=== PATIENT | female | born 1980 | race Caucasian/White ===

== ENCOUNTER → 2018-05-02 14:58 | Outpatient (CLI) | payer BC, SELFPAY ==
--- NOTE | 2018-05-02 15:00 | BI_ITS ---
MAMMOGRAPHY - BILATERAL SCREENING REASON FOR EXAM: Female, 38 years old. Routine annual screening examination. PERTINENT HISTORY: Mother with breast cancer. Grandmother with breast cancer. TECHNIQUE: Digital bilateral breast chas (3D mammographic acquisition) in the CC and MLO projections. 2-D mediolateral oblique (MLO) and craniocaudad (CC) views of both breasts were obtained. CAD: Full Field Digital Mammography with Computer Added Detection was performed. COMPARISON: Comparison is made with prior study dated November 14, 2015. FINDINGS: Breast Composition: The breasts are extremely dense, which lowers the sensitivity of mammography. There are no dominant masses or suspicious calcifications. Stable small bilateral axillary lymph nodes. No other significant abnormalities are identified. There has been no significant change since the prior study. BI/SCREENING MAMM (CAD), BILAT IMPRESSION: Stable bilateral screening mammogram. Yearly follow-up mammogram recommended. (A) ASSESSMENT CATEGORY: BIRADS Category 2: Benign. A letter regarding these results will be sent to the patient by the facility within 30 days. Approximately 10% of breast cancers are not detected by mammography. A normal mammogram should not delay biopsy of a clinically suspicious abnormality. [id number] Electronically Signed: Jian Stover MD at 8:07 EDT Tel [phone], Service support ,
== END ==
PROVIDERS: Family Provider Family Medicine; PCP Family Medicine; Referring Provider Obstetrics & Gynecology Gynecology; Visit Provider Obstetrics & Gynecology Gynecology
DX: Z12.31 Encounter for screening mammogram for malignant neoplasm of breast (principal); Z80.3 Family history of malignant neoplasm of breast
CPT/HCPCS: 77063; 77067

== ENCOUNTER → 2018-07-21 16:57 | Outpatient (CLI) | payer BC, SELFPAY ==
[2018-07-21 18:12] LABS: Absolute Lymphocyte Count 2.97 X10^3/ul (0.83-4.51); Basophil# 0.08 X10^3/uL; Eosinophil# 0.16 X10^3/uL; Eosinophils% 2.1 % (0-5); Hematocrit 40.1 % (37-47); Hemoglobin 12.7 g/dl (12.0-15.0); Lymphocyte # 2.97 X10^3/ul (4.0); Lymphocyte % 38.9 % (19-41); Mean Corp Hgb Conc 31.7 g/gl (32-36); Mean Corpuscular Hgb 26.5 pg (27.0-32.0); Mean Corpuscular Volume 83.5 fL (81-99); Mean Platelet Vol. 11.5 fl (6.2-12.0); Monocyte# 0.46 X10^3/uL; Neutrophil # 3.96 X10^3/uL (2.7-7.7); Platelet Count 322 K/mm3 (150-450); RBC Distribution Width CV 15.1 % (11.6-14.6); White Blood Count 7.6 K/mm3 (4.4-11.0)
[2018-07-21 18:23] LABS: POSITIVE COUNT NO; POSITIVE DIFFERENTIAL NO; POSITIVE MORPHOLOGY NO
[2018-07-21 18:24] LABS: Prothrombin Time (Protime)PT. 12.8 SECONDS (11.7-14.9)
[2018-07-21 18:25] LABS: Partial Thromboplast Time 26.5 Seconds (24.1-36.2)
[2018-07-21 18:29] LABS: AST(SGOT) 16 U/L (15-37); Alanine Aminotransfer ALT/SGPT 21 U/L (13-56); Albumin, Serum 4.2 g/dL (3.2-5.0); Alkaline Phosphatase 63 U/L (45-117); Bilirubin, Direct < 0.05 mg/dL (0.00-0.30); Globulin 2.7 g/dL (2.2-4.2); Protein, Total 6.9 g/dL (6.4-8.2)
== END ==
PROVIDERS: Family Provider Family Medicine; PCP Family Medicine; Visit Provider Family Medicine
DX: R23.3 Spontaneous ecchymoses (principal)
CPT/HCPCS: 36415; 80076; 85025; 85610; 85730

== ENCOUNTER → 2019-07-16 10:55 | Outpatient (CLI) | payer BC, SELFPAY ==
[2019-07-16 12:26] LABS: Absolute Lymphocyte Count 1.18 X10^3/uL (0.83-4.51); Absolute Neutrophil Count 4.3 X10^3/uL (2.0-7.7); Basophil# 0.06 X10^3/uL; Eosinophil# 0.13 X10^3/uL; Eosinophils% 2.2 % (0-5); Hematocrit 37.5 % (37-47); Hemoglobin 11.9 g/dL (12.0-15.0); Lymphocyte # 1.18 X10^3/ul (4.0); Lymphocyte % 19.5 % (19-41); Mean Corp Hgb Conc 31.7 g/dL (32-36); Mean Corpuscular Hgb 29.3 pg (27.0-32.0); Mean Corpuscular Volume 92.4 fL (81-99); Mean Platelet Vol. 9.4 fl (6.2-12.0); Monocyte# 0.35 X10^3/uL; Monocyte% 5.8 % (0-10); NRBC Flagged by Analyzer 0 % (0-5); Neutrophil # 4.31 X10^3/uL (2.7-7.7); Neutrophil % 71.3 % (47-70); Platelet Count 285 K/mm3 (150-450); RBC Distribution Width CV 12.3 % (11.6-14.6); RBC Distribution Width SD 41.8 fl (35.1-43.9); Red Blood Count 4.06 M/mm3 (4.2-5.4)
[2019-07-16 13:11] LABS: ALB/GLOB Ratio 1.3 RATIO (0.9-2.4); AST(SGOT) 17 U/L (15-37); Alanine Aminotransfer ALT/SGPT 26 U/L (13-56); Alkaline Phosphatase 70 U/L (45-117); Anion Gap 5 (5-15); BUN 8 mg/dL (7-18); Calcium,Total 8.8 mg/dL (8.5-10.1); Chloride 103 mmol/L (98-107); Creatinine, Serum 0.62 mg/dL (0.55-1.02); EST Glomerular Filtration Rate 115 mL/min (>60); Est Glom Filt Rate - Afr Amer 139 mL/min (>60); Globulin 3.1 g/dL (2.2-4.2); Glucose 102 mg/dL (74-106); Potassium 3.9 mmol/L (3.5-5.1); Protein, Total 7.1 g/dL (6.4-8.2); Sodium Level 138 mmol/L (136-145)
== END ==
PROVIDERS: Family Provider Family Medicine; PCP Family Medicine; Visit Provider Nurse Practitioner Family
DX: R11.2 Nausea with vomiting, unspecified (principal)
CPT/HCPCS: 36415; 80053; 85025

== ENCOUNTER → 2019-07-31 08:13 | Outpatient (CLI) | payer BC, SELFPAY ==
--- NOTE | 2019-07-31 08:15 | BI_ITS ---
MAMMOGRAPHY - BILATERAL SCREENING REASON FOR EXAM: Female, 39 years old. Routine annual screening examination. PERTINENT HISTORY: Mother with breast cancer. Grandmother with breast cancer. Aunt with breast cancer. TECHNIQUE: Digital bilateral breast gely (3D mammographic acquisition) in the CC and MLO projections. 2-D mediolateral oblique (MLO) and craniocaudad (CC) views of both breasts were obtained. CAD: Full Field Digital Mammography with Computer Added Detection was performed. COMPARISON: Comparison is made with prior examination dated May 02, 2018 and November 14, 2015. FINDINGS: Breast Composition: The breasts are extremely dense, which lowers the sensitivity of mammography. There are no dominant masses or suspicious calcifications. No other significant abnormalities are identified. There has been no significant change since the prior study. BI/SCREEN MAMM (CAD) W/GELY BILAT IMPRESSION: Stable bilateral screening mammogram. Yearly follow-up mammogram recommended. (A) ASSESSMENT CATEGORY: BIRADS Category 1: Negative. A letter regarding these results will be sent to the patient by the facility within 30 days. Approximately 10% of breast cancers are not detected by mammography. A normal mammogram should not delay biopsy of a clinically suspicious abnormality. [id number] Electronically Signed: Jian Stover, at 9:18 EST , Service support ,
== END ==
PROVIDERS: Family Provider Family Medicine; PCP Family Medicine; Referring Provider Obstetrics & Gynecology Gynecology; Visit Provider Obstetrics & Gynecology Gynecology
DX: Z12.31 Encounter for screening mammogram for malignant neoplasm of breast (principal); Z80.3 Family history of malignant neoplasm of breast
CPT/HCPCS: 77063; 77067

== ENCOUNTER 2020-05-16 06:32 | Day surgery (SDC) | payer BC, SELFPAY ==
[2020-04-29 13:11] VITALS: BMI 25.8
[2020-05-16] VITALS (7 sets, daily range): BP systolic 103–150; BP diastolic 62–104; PULSE 68–77; RESP 14–16; TEMP 36.2–37.2; O2SAT 4–100; BMI 26.3
--- NOTE | 2020-05-16 06:39 | HP.PCM_ITS ---
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 Is patient in pain?: No Allergies bupropion [From Wellbutrin] Allergy (Mild, Verified 04/29/20 13:13) GI upset sertraline [From Zoloft] Allergy (Mild, Verified 04/29/20 13:13) GI upset Medications baclofen 20 mg tablet 10 mg PO BID PRN tab 04/29/20 [History Confirmed 04/29/20] cetirizine 10 mg tablet 10 mg PO DAILY 04/29/20 [History Confirmed 04/29/20] citalopram 40 mg tablet 40 mg PO DAILY tab 04/29/20 [History Confirmed 04/29/20] fluticasone propionate 50 mcg/actuation nasal spray,suspension 1 spray INTRANASAL DAILY 04/29/20 [History Confirmed 04/29/20] hydrocodone 7.5 mg-acetaminophen 325 mg tablet 1 tab PO BID PRN tab 04/29/20 [History Confirmed 04/29/20] PFSH Medical History Depression (Acute) Anxiety (Acute) Chronic neck pain (Chronic) Allergies (Acute) Family history of breast cancer (Acute) Family history of colon cancer in father (Acute) Surgical History Hx of wisdom tooth extraction (Acute) Family History Mother Breast cancer Father Colon cancer Social History (Updated 04/29/20 @ 13:[address] Octavio Lee MD) Smoking Status: Never smoker second hand exposure: No alcohol intake: current alcohol intake frequency: a few times a week Alcohol type: wine substance use type: does not use caffeine: Yes what type of physical activity do you participate in: walking frequency: 5-6 times per week HPI HPI HPI: SEBASTIAN PIZARRO, is a 40 F who presents to the office today for surgical consultation regarding a colonoscopy. Her father developed colon cancer when he was only 49. She has not had any bright red blood per rectum or melena. No abdominal pain. No unexpected weight loss. No history of DVT. It is of note that February 2020 her developed COVID-19. She and her daughter were tested at the 9. They both tested negative. They both remained asymptomatic throughout. Laboratory going back to July 16, 2019 demonstrated a white count of 6 hemoglobin 9.9 hematocrit 37.5 platelet count 285,000 with a normal differential. Prior to that July 21, 2018 her white count was 7.6 with a hemotwelve 0.7 hematocrit 40.1 platelet count 322,000. 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 Her is an commercial construction estimator. They are not aware of where he may have contracted the Covid 19 but he has recovered and is asymptomatic currently The patient is referred by Dr. Soham Hernandez for a screening colonoscopy and a written copy of my surgical consult and recommendations will be returned to him HPI HPI HPI: SEBASTIAN PIZARRO, is a 40 F who presents to the office today for ROS General General: No weight change, appetite, fatigue, colon cancer, breast cancer or weakness HEENT HEENT: No difficulty swallowing, eye injury, eye surgery, swollen glands or hoarseness Endo Endocrine: No thyroid disease, diabetes mellitus, thyroid cancer, Hair loss, heat intolerance or cold intolerance Skin Skin: No rash or changing moles Musc Musculoskeletal: No back problems, arthritis, rheumatoid arthritis, gout or joint pain Cardio Cardiovascular: No murmur, pacemaker, heart disease, atrial fibrillation, high blood pressure, heart attack, heart stent, palpitations, shortness of breat with exertion or chest pain Psych Psychiatric: Yes depression and anxiety; no hearing voices Resp Respiratory: No shortness of breath, No sleep apnea, No cough, No COPD, No asthma, No emphysema, No wheezing Gastro Gastrointestinal: No abdominal pain, No nausea or vomiting, No diarrhea, No constipation, No blood in stool, No acid reflux, No hemorrhoids, No ulcers, No gallbladder problem, No black,tarry stools Mukesh Hematologic: No blood thinners, No blood disorders, No bleeding, No anemia, No blood clots Neuro Neurologic: No weakness Exam Const General: cooperative, healthy appearing, comfortable, no acute distress Nutritional Appearance: average body habitus Orientation: alert, awake HENAL Head: normal to inspection Eyes General: appearance normal, both eyes and all related structures Resp Effort & Inspection: normal respiratory effort Auscultation: clear to auscultation bilaterally Cardio Rate: regular rate Rhythm: regular rhythm Heart Sounds: no murmurs GI Palpation: soft Auscultation: normal bowel sounds Other: Small umbilical hernia nontender Musc Cervical Spine: normal cervical lordosis Neuro Cognition: normal cognition Extrem General: no calf tenderness Psych Affect: normal affect Assessment & Plan Problems 1. Family history of malignant neoplasm of colon in father Z80.0 2. Umbilical hernia without obstruction and without gangrene K42.9 Plan 40-year-old female with a family history of colon cancer in her father who developed that at age 49. She has not had a previous colonoscopy. Fortunately she is currently asymptomatic. I propose for her a colonoscopy with possible biopsy or polypectomy as indicated. She is aware of the technique, benefit, risk, alternatives. She has had an opportunity to ask and have questions answered. We will schedule procedure at her discretion. I appreciate the opportunity of assisting with her surgical care. Copy: Dr. Soham Lee M.D., F.A.C.S. Coding Level of Care Code 24919 Diagnoses Family history of malignant neoplasm of colon in father Z80.0 Umbilical hernia without obstruction and without gangrene K42.9 I have re-examined the patient. There are no clinical changes since date of exam. Procedure Criteria Procedure Type: Elective COVID Risk Discussion: The surgeon/proceduralist and patient have discussed in detail the risk of exposure to and/or potential harm posed by the COVID-19 virus with having a surgery/procedure at this time versus the risk of delaying the surgery/procedure. It is not possible to know either the risk of delaying the surgery or procedure or chance of getting an infection with perfect accuracy, but a joint decision was made between the patient and the surgeon/proceduralist to proceed at this time with the scheduled surgery/procedure as indicated on the consent form.
[2020-05-16] MEDS: Lactated Ringers 1,000 ML 100 ML IV (07:11)
--- NOTE | 2020-05-16 07:30 | COLBX_PTH ---
PATIENT: SEBASTIAN PIZARRO LOC: EN U#:[id number] AGE/SX: 40/F ROOM: RE05/16/[address]: Dr. Octavio Lee MD : 1980 BED: DIS: 05/16/2020 SPEC #: [id number] RECD: 05/16/20 11:54 STATUS: YOLANDA OVALLE #: [id number] RACHEL: 05/16/20 07:[address]: Octavio Lee DEPT: SURGICAL PATHOLOGY RECD BY: Andie Knox ENTERED: 05/16/20 12:18 SP TYPE: COLON BX OTHR DR: Dr. Soham Hernandez MD Tissues: Ascending colon Procedures: Surgery Specimen Level IV HEADER OPERATION: Colonoscopy (MOD) PRE-OP DIAGNOSIS: Family history malignant neoplasm of colon TISSUE SUBMITTED: Mid ascending polyp biopsy MICROSCOPIC DIAGNOSIS Mid ascending polyp, biopsy: Fragments of colonic mucosa, no pathologic diagnosis. SJ:cyndy 05/19/20 MICROSCOPIC DESCRIPTION Slides are reviewed. GROSS DESCRIPTION Received in fixative is one container labeled with the patient's name and designated mid ascending polyp. The specimen consists of multiple irregular fragments of light fernandes soft tissue that in aggregate measure 1 x 0.3 x 0.1 cm. The specimen is totally submitted in one cassette. / SJ:cyndy 05/16/20 TC:4 CPT: 45293
--- NOTE | 2020-05-16 07:52 | OP.COLON_ITS ---
Patient Name: Tiffany Tran Procedure Date: 05/16/2020 7:10 AM Date of : 1980 Age: 40 Procedure: Colonoscopy Indications: Screening in patient at increased risk: Family history of 1st-degree relative with colorectal cancer before age 60 years Providers: Octavio Lee MD Referring MD: Octavio Lee MD Medicines: Midazolam 4 mg IV, Meperidine 100 mg IV, Diphenhydramine 25 mg IV Patient Profile: Last Colonoscopy: none. The patient's first colonoscopy is today. Complications: No immediate complications. Procedure: Pre-Anesthesia Assessment: - Prior to the procedure, a History and Physical was performed, and patient medications and allergies were reviewed. The patient's tolerance of previous anesthesia was also reviewed. The risks and benefits of the procedure and the sedation options and risks were discussed with the patient. All questions were answered, and informed consent was obtained. Prior Anticoagulants: The patient has taken no previous anticoagulant or antiplatelet agents. ASA Grade Assessment: I - A normal, healthy patient. After reviewing the risks and benefits, the patient was deemed in satisfactory condition to undergo the procedure. After I obtained informed consent, the scope was passed under direct vision. Throughout the procedure, the patient's blood pressure, pulse, and oxygen saturations were monitored continuously. The Colonoscope was introduced through the anus and advanced to the cecum, identified by appendiceal orifice and ileocecal valve. The colonoscopy was somewhat difficult due to a tortuous colon. Successful completion of the procedure was aided by increasing the dose of sedation medication, changing the patient to a supine position and using manual pressure. The patient tolerated the procedure well. The quality of the bowel preparation was good. The ileocecal valve and the appendiceal orifice were photographed. Moderate Sedation: Moderate (conscious) sedation was personally administered by the endoscopist. The following parameters were monitored: oxygen saturation, heart rate, blood pressure, and response to care. Total physician intraservice time was 15 minutes. Scope In: 7:29:45 AM Scope Withdrawal Time 0 hours 7 minutes 14 seconds Scope Out: 7:46:38 AM Total Procedure Duration Time 0 hours 16 minutes 53 seconds Findings: Hemorrhoids were found on perianal exam. A 4 mm polyp was found in the mid ascending colon. The polyp was sessile. The polyp was removed with a cold biopsy forceps. Resection and retrieval were complete. The left colon and right colon were moderately tortuous. The exam was otherwise without abnormality. Impression: - Hemorrhoids found on perianal exam. - One 4 mm polyp in the mid ascending colon, removed with a cold biopsy forceps. Resected and retrieved. - Tortuous colon. - The examination was otherwise normal. Recommendation: - Discharge patient to home. - Resume previous diet. - Continue present medications. - Repeat colonoscopy in 5 years for surveillance. - Telephone my office for pathology results in 1 week. Procedure Code(s): --- Professional --- 75859, Colonoscopy, flexible; with biopsy, single or multiple 92811, 59, Moderate sedation services provided by the same physician or other qualified health hospice care sales consultant performing the diagnostic or therapeutic service that the sedation supports, requiring the presence of an independent trained observer to assist in the monitoring of the patient's level of consciousness and physiological status; initial 15 minutes of intraservice time, patient age 5 years or older Diagnosis Code(s): --- Professional --- Z80.0, Family history of malignant neoplasm of digestive organs K64.9, Unspecified hemorrhoids D12.2, Benign neoplasm of ascending colon Q43.8, Other specified congenital malformations of intestine CPT copyright 2017 [employer]. All rights reserved. The codes documented in this report are preliminary and upon motion graphics designer review may be revised to meet current compliance requirements. Octavio Lee MD 05/16/2020 7:51:46 AM This report has been signed electronically. Number of Addenda: 0 Note Initiated On: 05/16/2020 7:10 AM
--- NOTE | 2020-05-16 07:52 | OP.CCLET_ITS ---
05/16/2020 Soham Hernandez Md Re : Colonoscopy procedure for Tiffany Tran Dear David This procedure was performed on Saturday, May 16, 2020. My impressions and recommendations are as follows: Impressions : - Hemorrhoids found on perianal exam. - One 4 mm polyp in the mid ascending colon, removed with a cold biopsy forceps. Resected and retrieved. - Tortuous colon. - The examination was otherwise normal. Recommendations : - Discharge patient to home. - Resume previous diet. - Continue present medications. - Repeat colonoscopy in 5 years for surveillance. - Telephone my office for pathology results in 1 week. My findings are described in the full procedure note, which is enclosed. If I can be of further assistance, please feel free to contact me at Doctor phone number(s): Work: . Sincerely, Octavio Lee MD 05/16/2020 7:51:46 AM This report has been signed electronically.
== END 2020-05-16 08:35 | disposition home or self-care (01) ==
LOC: EN 06:32 → AC 06:33
PROVIDERS: PCP Family Medicine; Referring Provider Surgery; Visit Provider Surgery
PROC: 0DJD8ZZ Inspection of Lower Intestinal Tract, Via Natural or Artificial Opening Endoscopic (ICD-10-PCS; CPT 45378; principal; 2020-05-16 07:25)
DX: Z12.11 Encounter for screening for malignant neoplasm of colon (principal); Z11.59 Encounter for screening for other viral diseases; D12.2 Benign neoplasm of ascending colon; K42.9 Umbilical hernia without obstruction or gangrene; K64.9 Unspecified hemorrhoids; Q43.8 Other specified congenital malformations of intestine; F32.9 Major depressive disorder, single episode, unspecified; F41.9 Anxiety disorder, unspecified; Z79.899 Other long term (current) drug therapy; Z80.0 Family history of malignant neoplasm of digestive organs
CPT/HCPCS: 45380; 87635; 88305; 99152; 99153; C9803; J7120; U0003

== ENCOUNTER → 2020-12-18 08:10 | Outpatient (CLI) | payer BC, SELFPAY ==
[2020-05-16 06:53] VITALS: BMI 26.3
--- NOTE | 2020-12-18 08:12 | BI_ITS ---
MAMMOGRAPHY - BILATERAL SCREENING REASON FOR EXAM: Female, 40 years old. Routine annual screening examination. PERTINENT HISTORY: Mother with breast cancer. Grandmother with breast cancer. Aunt with breast cancer. TECHNIQUE: Digital bilateral breast gely (3D mammographic acquisition) in the CC and MLO projections. 2-D mediolateral oblique (MLO) and craniocaudad (CC) views of both breasts were obtained. CAD: Full Field Digital Mammography with Computer Added Detection was performed. COMPARISON: Comparison is made with prior examination dated 01/29/2020 and 05/02/2018. FINDINGS: Breast Composition: The breasts are extremely dense, which lowers the sensitivity of mammography. There are no dominant masses or suspicious calcifications. No other significant abnormalities are identified. There has been no significant change since the prior study. BI/SCRN MAMM (CAD)W/GELY BILAT IMPRESSION: Stable bilateral screening mammogram. Yearly follow-up mammogram recommended. (A) ASSESSMENT CATEGORY: BIRADS Category 1: Negative. A letter regarding these results will be sent to the patient by the facility within 30 days. Approximately 10% of breast cancers are not detected by mammography. A normal mammogram should not delay biopsy of a clinically suspicious abnormality. [id number] Electronically Signed: Jian Stover MD at 9:31 EDT , Service support ,
== END ==
PROVIDERS: PCP Family Medicine; Referring Provider Obstetrics & Gynecology Gynecology; Visit Provider Obstetrics & Gynecology Gynecology
DX: Z12.31 Encounter for screening mammogram for malignant neoplasm of breast (principal); Z80.3 Family history of malignant neoplasm of breast
CPT/HCPCS: 77063; 77067

== ENCOUNTER → 2021-01-05 08:12 | Outpatient (CLI) | payer BC, SELFPAY ==
[2020-05-16 06:53] VITALS: BMI 26.3
[2021-01-05 09:50] LABS: Absolute Lymphocyte Count 2.61 X10^3/uL (0.83-4.51); Absolute Neutrophil Count 1.7 X10^3/uL (2.0-7.7); Basophil# 0.09 X10^3/uL; Basophil% 1.8 % (0-1); Eosinophil# 0.33 X10^3/uL; Eosinophils% 6.5 % (0-5); Hemoglobin 12.7 g/dL (12.0-15.0); Lymphocyte # 2.61 X10^3/ul (0.83-4.51); Lymphocyte % 51.2 % (19-41); Mean Corp Hgb Conc 32.6 g/dL (32-36); Mean Corpuscular Hgb 30.4 pg (27.0-32.0); Mean Corpuscular Volume 93.3 fL (81-99); Mean Platelet Vol. 9.4 fl (6.2-12.0); Monocyte# 0.41 X10^3/uL; NRBC Flagged by Analyzer 0 % (0-5); Neutrophil # 1.66 X10^3/uL (2.7-7.7); Neutrophil % 32.5 % (47-70); Platelet Count 242 K/mm3 (150-450); RBC Distribution Width CV 12.4 % (11.6-14.6); RBC Distribution Width SD 42.9 fl (35.1-43.9); Red Blood Count 4.18 M/mm3 (4.2-5.4); White Blood Count 5.1 K/mm3 (4.4-11.0)
[2021-01-05 10:32] LABS: ALB/GLOB Ratio 1.3 RATIO (0.9-2.4); AST(SGOT) 15 U/L (15-37); Alanine Aminotransfer ALT/SGPT 21 U/L (13-56); Albumin, Serum 3.9 g/dL (3.2-5.0); Alkaline Phosphatase 62 U/L (45-117); Anion Gap 7 (5-15); BUN 12 mg/dL (7-18); BUN/Creat Ratio 17.6 RATIO (10-20); Calcium,Total 8.4 mg/dL (8.5-10.1); Chloride 104 mmol/L (98-107); Cholesterol 245 mg/dL (200); Creatinine, Serum 0.68 mg/dL (0.55-1.02); EST Glomerular Filtration Rate 101 mL/min (>60); Est Glom Filt Rate - Afr Amer 123 mL/min (>60); Glucose 85 mg/dL (74-106); High Density Lipoprotein 89 mg/dL; Potassium 3.9 mmol/L (3.5-5.1); Protein, Total 6.9 g/dL (6.4-8.2); Sodium Level 141 mmol/L (136-145); Triglycerides 80 mg/dL; Very Low Density Lipoprotein 16 mg/dL (5-40)
== END ==
PROVIDERS: PCP Family Medicine; Visit Provider Family Medicine
DX: D64.9 Anemia, unspecified (principal); Z13.1 Encounter for screening for diabetes mellitus; Z13.220 Encounter for screening for lipoid disorders
CPT/HCPCS: 36415; 80053; 80061; 85025

== ENCOUNTER → 2022-02-12 | Outpatient (CLI) | payer BC, SELFPAY ==
--- NOTE | 2022-02-12 13:59 | BI_ITS ---
MAMMOGRAPHY - BILATERAL SCREENING REASON FOR EXAM: Female, 41 years old. Routine annual screening examination. PERTINENT HISTORY: Mother with breast cancer. Grandmother with breast cancer. Aunt with breast cancer. TECHNIQUE: Digital bilateral breast gely (3D mammographic acquisition) in the CC and MLO projections. 2-D mediolateral oblique (MLO) and craniocaudad (CC) views of both breasts were obtained. CAD: Full Field Digital Mammography with Computer Added Detection was performed. COMPARISON: Comparison is made with prior study dated 12/18/2020 and 12/30/2019. FINDINGS: Breast Composition: The breasts are extremely dense, which lowers the sensitivity of mammography. There are no dominant masses or suspicious calcifications. Stable small benign appearing bilateral axillary lymph nodes. No other significant abnormalities are identified. There has been no significant change since the prior study. BI/SCRN MAMM (CAD)W/GELY BILAT IMPRESSION: Stable bilateral screening mammogram. Yearly follow-up mammogram recommended. (A) ASSESSMENT CATEGORY: BIRADS Category 2: Benign. A letter regarding these results will be sent to the patient by the facility within 30 days. Approximately 10% of breast cancers are not detected by mammography. A normal mammogram should not delay biopsy of a clinically suspicious abnormality. [id number] Electronically Signed: Jian Stover MD at 10:23 EDT ,
== END | disposition home or self-care (01) ==
LOC: OPBI 13:58
PROVIDERS: PCP Registered Nurse; Visit Provider Obstetrics & Gynecology Gynecology
DX: Z12.31 Encounter for screening mammogram for malignant neoplasm of breast (principal); Z80.3 Family history of malignant neoplasm of breast
CPT/HCPCS: 77063; 77067

== ENCOUNTER → 2023-03-07 | Outpatient (CLI) | payer BC, SELFPAY ==
--- NOTE | 2023-03-07 07:34 | BI_ITS ---
MAMMOGRAPHY - BILATERAL SCREENING REASON FOR EXAM: Female, 43 years old. Routine annual screening examination. PERTINENT HISTORY: Mother with breast cancer. Grandmother with breast cancer. Aunt with breast cancer. TECHNIQUE: Digital bilateral breast gely (3D mammographic acquisition) in the CC and MLO projections. 2-D mediolateral oblique (MLO) and craniocaudad (CC) views of both breasts were obtained. CAD: Full Field Digital Mammography with Computer Added Detection was performed. COMPARISON: Comparison is made with prior study dated February 12, 2022 and December 18, 2020. FINDINGS: Breast Composition: The breasts are extremely dense, which lowers the sensitivity of mammography. There are no dominant masses or suspicious calcifications. Stable small benign-appearing bilateral axillary nodes. No other significant abnormalities are identified. There has been no significant change since the prior study. BI/SCRN MAMM (CAD)W/GELY BILAT IMPRESSION: Stable bilateral screening mammogram. Yearly follow-up mammogram recommended. (A) ASSESSMENT CATEGORY: BIRADS Category 2: Benign. A letter regarding these results will be sent to the patient by the facility within 30 days. Approximately 10% of breast cancers are not detected by mammography. A normal mammogram should not delay biopsy of a clinically suspicious abnormality. [id number] Electronically Signed: Jian Stover MD at 12:39 EDT ,
== END | disposition home or self-care (01) ==
LOC: OPBI 07:32
PROVIDERS: PCP Registered Nurse; Referring Provider Obstetrics & Gynecology Gynecology; Visit Provider Obstetrics & Gynecology Gynecology
DX: Z12.31 Encounter for screening mammogram for malignant neoplasm of breast (principal); Z80.3 Family history of malignant neoplasm of breast
CPT/HCPCS: 77063; 77067

== ENCOUNTER → 2023-05-30 | Outpatient (CLI) | payer BC, SELFPAY ==
[2023-05-30 08:27] LABS: Hematocrit 40.2 % (37-47); Mean Corp Hgb Conc 32.3 g/dL (32-36); Mean Corpuscular Hgb 30.7 pg (27.0-32.0); Mean Platelet Vol. 8.7 fl (6.2-12.0); Platelet Count 235 K/mm3 (150-450); RBC Distribution Width CV 11.9 % (11.6-14.6); RBC Distribution Width SD 41.2 fl (35.1-43.9); Red Blood Count 4.23 M/mm3 (4.2-5.4); White Blood Count 5.2 K/mm3 (4.4-11.0)
[2023-05-30 09:00] LABS: ALB/GLOB Ratio 1.3 RATIO (0.9-2.4); AST(SGOT) 18 U/L (15-37); Alanine Aminotransfer ALT/SGPT 18 U/L (13-56); Albumin, Serum 4.1 g/dL (3.2-5.0); Alkaline Phosphatase 59 U/L (45-117); Anion Gap 6 (5-15); BUN 8 mg/dL (7-18); BUN/Creat Ratio 10.5 RATIO (10-20); Calcium,Total 8.6 mg/dL (8.5-10.1); Chloride 103 mmol/L (98-107); Cholesterol 216 mg/dL (200); Creatinine, Serum 0.76 mg/dL (0.55-1.02); EST Glomerular Filtration Rate 88 mL/min (>60); Est Glom Filt Rate - Afr Amer 107 mL/min (>60); Globulin 3.1 g/dL (2.2-4.2); Glucose 102 mg/dL (74-106); High Density Lipoprotein 87 mg/dL; Potassium 4.2 mmol/L (3.5-5.1); Protein, Total 7.2 g/dL (6.4-8.2); Sodium Level 138 mmol/L (136-145); Triglycerides 92 mg/dL; Very Low Density Lipoprotein 18 mg/dL (5-40)
== END | disposition home or self-care (01) ==
LOC: LAB 08:11
PROVIDERS: PCP Registered Nurse; Referring Provider Registered Nurse; Visit Provider Registered Nurse
DX: Z00.00 Encounter for general adult medical examination without abnormal findings (principal)
CPT/HCPCS: 36415; 80053; 80061; 85027

== ENCOUNTER → 2023-08-30 | Outpatient (CLI) | payer BC, SELFPAY ==
--- OUTSIDE RECORDS SUMMARY | 2023-08-30 07:41 | XMS RPT_ITS | CCD ---
Author Name Unknown Address [address] [place] [address] Organization [facility] Care Team Providers Care Waste Elimination Name Role Phone LEILA PALACIOS DO Primary Care Physician GOLDY MARTINEZ Primary Care Physi [place] LEILA PALACIOS DO Primary Care Unavailable GOLDY MARTINEZ Attending Un available YANIQUE HERNÁNDEZ MD Attending Unavailable PENELOPE ALVARADO, GOLDY Wilkes Primary Care Un available PENELOPE ALVARADO, GOLDY Wilkes Primary Care Un available YANIQUE HERNÁNDEZ MD Attending Unavailable PENELOPE ALVARADO, GOLDY Wilkes Primary Care Un available YANIQUE HERNÁNDEZ MD Attending Unavailable SUZANNE WILSON, LEILA Primary Care Unavailable PENELOPE ALVARADO, GOLDY Wilkes Attending Un available Medications Current Medications Medication Drug Class(es) Dates Sig (Normalized) Sig (Original) acetaminophen 325 mg / HYDROcodone bitartrate 7.5 mg oral tablet (1 source) Opioid Agonist Start: 11-26-2020 take 1 tablet by mouth twice daily acetaminophen-hydr ocodone 325 mg-7.5 mg oral tablet take 1 tablet by mouth twice a day if needed for 30 DAYS Start Date: 11/26/20 Status: Ordered Ascorbic Acid (2 sources) Vitamin C Start: 06-14-2022 Vitamin C qDay, 0 Refill(s) Start Date: 06/14/22 Status: Ordered citalopram 40 mg oral tablet (4 sources) Serotonin Reuptake Inhibitor Start: 11-26-2020 take 1 tablet by mouth once daily citalopram 40 mg oral tablet TAKE 1 TABLET BY MOUTH ONCE DAILY Start Date: 11/26/20 Status: Ordered Defense Plus supplement (2 sources) Start: 06-14-2022 Defense Plus supplement Defense Plus supplement, 0 Refill(s), 73.8 Start Date: 06/14/22 Status: Ordered Fish Oils (2 sources) Start: 06-14-2022 take 1 dose by mouth once daily Bland-3 Fish Oil Dose : 1,000 mg =, Oral, qDay, 0 Refill(s) Start Date: 06/14/22 Status: Ordered levocetirizine dihydrochloride 5 mg oral tablet (4 sources) Histamine-1 Receptor Antagonist Start: 01-07-2021 Xyzal 5 mg oral tablet Dose : 5 mg = 1 tab(s), Oral, qPM, 0 Refill(s) Start Date: 01/07/21 Status: Ordered Multivitamin preparation (4 sources) Start: 11-26-2020 take 1 tablet by mouth once daily Multivitamin Dose = 1 tab(s), Oral, Daily, 0 Refill(s) Start Date: 11/26/20 Status: Ordered Probiotic (4 sources) Start: 11-26-2020 Probiotic 0 Refill(s) Start Date: 11/26/20 Status: Ordered Problems Active Problems Problem Classification Problem Date Documented Date Episodic/Chronic Essential hypertension (4 sources) Hypertensive disorder 11-26-2020 Chronic Other female genital disorders (4 sources) Cervical intraepithelial neoplasia grade 1 05-27-2021 Episodic Other female genital disorders (2 sources) Mild cervical dysplasia; Translations: [Mild cervical dysplasia] Onset: 01-25-2023 Episodic Other upper respiratory disease (2 sources) Seasonal allergy 05-14-2022 Chronic Residual codes; unclassified (4 sources) Family history of breast cancer 11-26-2020 Episodic Spondylosis; intervertebral disc disorders; other back problems (3 sources) Torticollis 02-15-2022 Episodic Past or Other Problems Problem Classification Problem Date Documented Da te Episodic/Chronic Abdominal pain (2 sources) Pelvic and perineal pain; Translations: [Pelvic and perineal pain] Onset: 06-14-2022 Episodic Mycoses (2 sources) Candidiasis of vulva and vagina; Translations: [Candidiasis of vulva and vagina] Onset: 06-14-2022 Episodic Results Test Name Value Interpretation Reference Range Facil ity Encounters Encounter Date Encounter Type Care Provider Facility Start: 01-25-2023 End: 01-30-2023 ambulatory YANIQUE HERNÁNDEZ MD Facility:B Start: 01-25-2023 End: 01-30-2023 Encounter for gynecological examination (general) (routine) without abnormal findings YANIQUE HERNÁNDEZ MD Facility:B Start: 06-14-2022 End: 06-19-2022 ambulatory GOLDY NEGRETE APRN-BACK CLOSER Facility:B Start: 06-14-2022 End: 06-18-2022 Outreach Lab YANIQUE HERNÁNDEZ MD [facility] Start: 06-14-2022 End: 06-19-2022 ambulatory GOLDY NEGRETE APRN-BACK CLOSER Facility:B Start: 06-14-2022 End: 06-18-2022 Outreach Lab YANIQUE HERNÁNDEZ MD [facility] Start: 04-13-2022 End: 04-14-2022 ambulatory LEILA PALACIOS DO Facility:B Start: 04-13-2022 End: 04-13-2022 Patient encounter procedure GOLDY NEGRETE ALIGNING INSPECTOR-BACK CLOSER [facility] Start: 12-09-2021 End: 12-13-2021 Outreach Lab YANIQUE HERNÁNDEZ MD [facility] Procedures Date Procedure Procedure Detail Performing Clinician Structure of wisdom tooth (body structure) YANIQUE HERNÁNDEZ MD Immunizations Immunization Date Immunization Notes Care Provider Fa cility 05-14-2022 influenza, injectabl e, quadrivalent, contains preservative; Translations: [Fluarix PF Quadrivalent ] YANIQUE HERNÁNDEZ MD [facility] Payers Date Payer Category Payer Unknown [id number] 2022 Unknown [id number] 1980 Unknown [id number] 2.16.8 [id number] 1980 Unknown [id number] 2.16.8 [id number] 1980 Unknown [id number] 2.16.8 [id number] 1980 Unknown [id number] 2.16.8 [id number] 1980 Unknown [id number] 2.16.8 [id number] Social History Date Type Detail Facility Start: 11-25-2020 Tobacco smoking status Never s moked tobacco (finding) [facility] Sex Assigned At Female [facility] Clinical Notes 06-16-2022 to 06-17-2022 LaboratoryRadiologyRadiologyLaboratoryRadiology Note Date & Type Note Facility 06-17-2022 Note Pathology report verified by [facility] Screened by: KWAME MAHARAJ Electronically signed by IVONNE SANDS Sign-Out Date: 06/18/2022 10:51 Performing Lab: [address] Pathology Dept [facility] 06-17-2022 Note Pathology report verified by [facility] Screened by: KWAME MAHARAJ Electronically signed by IVONNE SANDS Sign-Out Date: 06/18/2022 10:51 Performing Lab: [address] Pathology Dept [facility] 06-17-2022 Note Pathology report verified by [facility] Screened by: [place] DW Electronically signed by IVONNE SANDS Sign-Out Date: 06/18/2022 10:51 Performing Lab: [facility], [address] [place] [address] Pathology Dept [facility] 06-17-2022 Note Pathology report verified by [facility] Screened by: KWAME MAHARAJ Electronically signed by IVONNE SANDS Sign-Out Date: 06/18/2022 10:51 Performing Lab: [facility], [address] [place] [address] Pathology Dept [facility] 06-17-2022 Note Pathology report verified by [facility] Screened by: KWAME MAHARAJ Electronically signed by IVONNE SANDS Sign-Out Date: 06/18/2022 10:51 Performing Lab: [facility], [address] [place] [address] [place] Pathology Dept [facility] 06-17-2022 Note Pathology report verified by [facility] Screened by: KWAME MAHARAJ Electronically signed by IVONNE ASNDS Sign-Out Date: 06/18/2022 10:51 Performing Lab: [facility], [address] [place] [address] Pathology Dept [facility] 06-17-2022 Note Pathology report verified by [facility] Screened by: KWAME MAHARAJ Electronically signed by IVONNE SANDS Sign-Out Date: 06/18/2022 10:51 Performing Lab: [facility], [address] [place] [address] [place] Pathology Dept [facility] 06-16-2022 Note . MICRO - Microbiology PROCEDURE: Urine Culture [*1] SOURCE: Urine, Clean Catch BODY SITE: COLLECTED DATE/TIME: 06/14/2022 10:32 EST RECEIVED DATE/TIME: 06/14/2022 15:19 EST START DATE/TIME: 06/14/2022 15:19 EST FREE TEXT SOURCE: FINAL REPORTS Final Report [] Verified Date/Time/Personnel: 06/16/2022 08:38 EST No growth at 48 hours. PRELIMINARY REPORTS Preliminary Report [] Verified Date/Time/Personnel: 06/15/2022 09:16 EST No growth to date Performing Locations *1: This test was performed at: [facility], [address] [place] [address], [facility] , [facility] ([place]) Evaluation + Plan note Future Appointments Appointment Date:06/14/2022 08:30:00 AM Scheduled Provider:YANIQUE HERNÁNDEZ MD Location:[facility] Appointment Type: OV Diagnostic Tests PendingHPV Screen, DNA Probe 12/09/21 Future Scheduled TestsPathology Tissue Request 01/07/21Pathology Tissue Request 01/07/21MA Mammo Screening Bilateral w/ Kyle 12/17/20MA Mammo Screening Bilateral w/ Kyle 12/09/21 [facility] Evaluation + Plan note Future Appointments Appointment Date:05/14/2022 12:30:00 PM Scheduled Provider:GOLDY NEGRETE Location:[facility] Appointment Type:PC OV Appointment Date:06/14/2022 08:30:00 AM Scheduled Provider:YANIQUE HERNÁNDEZ MD Location: [facility] Appointment Type: OV Future Scheduled TestsMA Mammo Screening Bilateral w/ Kyle 12/09/21 [facility] Evaluation + Plan note Future Appointments Appointment Date:08/09/2022 01:00:00 PM Scheduled Provider:GOLDY NEGRETE Location:[facility] Appointment Type:PC OV Future Scheduled TestsPathology Circuit Court Clerk Request 06/14/22MA Mammo Screening Bilateral w/ Kyle 12/09/21 [facility] Hospital course Narrative No data available for this section [facility] Hospital Discharge instructions No data available for this section [facility] Progress note No data available for this section [facility] Summary Purpose Family History No Family History Records FoundNo Family History Records FoundNo Family History Records Found Advance Directives No Advanced Directives Records FoundNo Advanced Directives Records FoundNo Advanced Directives Records Found Additional Source Comments INFORMATION SOURCE (unrecogn ized section and content) DATE CREATED AUTHOR AUTHOR'S ORGANIZ ATION 12/12/2020 [facility] ([place]) DATE CREATED AUTHOR AUTHOR'S ORGANIZ ATION 02/04/2023 [facility] [place]) Care Team (unrecognized sect ion and content) Personnel Name: LEILA PALACIOS DO Address: [address] [place] [phone]- [place] Care Team (unrecognized sect ion and content) Care Team Personnel Name: LEILA PALACIOS DO Member Role: Primary Care Physician Address: Address: [address] [place] [phone]- Care Team Related Persons Name: LLOYD PIZARRO Name: ALIS PIZARRO Address: Home [address] [place] [phone] Address: Temporary [address] [place] [id number] Care Team Personnel Name: GOLDY NEGRETE Position: P4 Advanced Practice Nurse Member Role: Primary Care Physician Address: [facility] [place], [place] [address] Care Team Related Persons Name: LLOYD PIZARRO Name: ALIS PIZARRO Address: Home [address] [place] [phone] Address: Temporary [address] [place] [phone] Care Team Personnel Name: GOLDY NEGRETE APRN-BACK CLOSER Position: P4 Advanced Practice Nurse Member Role: Primary Care Physician Address: Address: [address] [place] [address] [place] [address]- Care Team Related Persons Name: JUAREZ LLOYD Name: ALIS PIZARRO Address: Home [address] [place] [phone] Address: Temporary [address] [place] [phone] FOR RECORDS PERTAINING TO PATIENTS WHO ARE OR HAVE BEEN ENROLLED IN A CHEMICAL DEPENDENCY/SUBSTANCEABUSE PROGRAM, SOME INFORMATION MAY BE OMITTED. This clinical summary was aggregated from multiple sources. Caution should be exercised in using it in the provision of clinical care. This summary normalizes information from multiple sources, and as a consequence, information in this document may materially change the coding, format and clinical context of patient data. In addition, data may be omitted in some cases. CLINICAL DECISIONS SHOULD BE BASED ON THE PRIMARY CLINICAL RECORDS. [facility] [employer] provides no warranty or guarantee of the accuracy or completeness of information in this document.
[2023-08-30 09:23] LABS: Follicle Stimulating Hormone 5.8 mIU/mL; T4 Free Direct 0.88 ng/dL (0.76-1.46); Thyroid Stim Hormone (TSH) 1.21 uIU/mL (0.358-3.74)
[2023-09-02 03:07] LABS: Anti-Mullerian Hormone,Serum 0.261 ng/mL (.)
== END | disposition home or self-care (01) ==
PROVIDERS: PCP Registered Nurse; Referring Provider Registered Nurse; Visit Provider Registered Nurse
DX: R53.83 Other fatigue (principal); N95.1 Menopausal and female climacteric states
CPT/HCPCS: 36415; 83001; 83002; 83516; 84439; 84443

== ENCOUNTER → 2024-03-08 | Outpatient (CLI) | payer BC, SELFPAY ==
--- NOTE | 2024-03-08 12:15 | BI_ITS ---
MAMMOGRAPHY - BILATERAL SCREENING REASON FOR EXAM: Female, 44 years old. Routine annual screening examination. PERTINENT HISTORY: Mother with breast cancer. Grandmother with breast cancer. Aunt with breast cancer. TECHNIQUE: Digital bilateral breast gely (3D mammographic acquisition) in the CC and MLO projections. 2-D mediolateral oblique (MLO) and craniocaudad (CC) views of both breasts were obtained. CAD: Full Field Digital Mammography with Computer Added Detection was performed. COMPARISON: Comparison is made with prior study March 07, 2023 and February 12, 2022. FINDINGS: Breast Composition: The breasts are extremely dense, which lowers the sensitivity of mammography. There are no dominant masses or suspicious calcifications. Stable small benign-appearing bilateral axillary lymph nodes. No other significant abnormalities are identified. There has been no significant change since the prior study. BI/SCRN MAMM (CAD)W/GELY BILAT IMPRESSION: Stable bilateral screening mammogram. Yearly follow-up mammogram recommended. (A) ASSESSMENT CATEGORY: BIRADS Category 2: Benign. A letter regarding these results will be sent to the patient by the facility within 30 days. Approximately 10% of breast cancers are not detected by mammography. A normal mammogram should not delay biopsy of a clinically suspicious abnormality. [id number] Electronically Signed: Jian Stover MD at 13:40 EDT ,
--- NOTE | 2024-03-08 12:34 | VDLE_ITS ---
Reason For Study: LLE Pain RIGHT LEFT FV is compressible, spontaneous, phasic, CFV is compressible, spontaneous, phasic, competent and demonstrates normal competent, and demonstrates normal augmentation. augmentation. Procedure FV is compressible, spontaneous, phasic, This is a venous duplex using B-mode, color competent and demonstrates normal flow and spectral Doppler. augmentation. Exam performed in department. POP V is compressible, spontaneous, phasic, The exam was diagnostic. competent and demonstrates normal augmentation. T/P Trunk is compressible. PTV is compressible. LT PerV is compressible. SFJ is INCOMPETENT and measures 0.50 cm. GSV Prox - Mid Thigh unable to visualize / HX Ablation. GSV at knee measures 0.65 x 0.75 cm. GSV below knee is INCOMPETENT for greater than 0.5 seconds. ASV mid calf is INCOMPETENT for greater than 0.5 seconds and measures 0.39 x 0.44 cm. ASV distal thigh is INCOMPETENT for greater than 0.5 seconds and measures 0.26 x 0.30 cm. ASV Dist thigh noted at posterior area. SSV proximal calf is competent and measures 0.22 x 0.27 cm. VL/Venous Duplex US, Unilateral Interpretation Summary Deep veins of the left lower extremity are patent and compressible segmentally. There is no evidence of left lower extremity deep vein thrombosis. The left great saphenous vein jada ears patent and compressible segmentally. Positive for reflux in the left saphenofemoral junction, great saphenous vein b elow the knee, accessory saphenous veins in thigh and calf. Ordering Physician: Juliann Sabillon Referring Physician: Vandana Valerio Performed By: Prabhu Doan RVT
== END | disposition home or self-care (01) ==
PROVIDERS: PCP Registered Nurse; Referring Provider Physician Assistant; Visit Provider Physician Assistant
DX: Z12.31 Encounter for screening mammogram for malignant neoplasm of breast (principal); N87.0 Mild cervical dysplasia; Z80.3 Family history of malignant neoplasm of breast; I83.892 Varicose veins of left lower extremity with other complications; M79.605 Pain in left leg
CPT/HCPCS: 77063; 77067; 93971

== ENCOUNTER → 2024-07-02 | Outpatient (CLI) | payer BC, SELFPAY ==
--- NOTE | 2024-07-02 08:48 | US_ITS ---
HISTORY: epigastric abdominal pain, nausea. TECHNIQUE: Hernandez scale and color doppler imaging was performed of the right upper quadrant. 103 images. COMPARISON: None. FINDINGS: LIVER: 15.7 cm in length. Homogeneous echotexture with a 9 mm cyst in the left lobe. No intrahepatic ductal dilatation. MAIN PORTAL VEIN: Patent with flow in the appropriate direction. COMMON BILE DUCT: 5 mm in diameter. GALLBLADDER: No gallstones. 1 mm wall thickness. No pericholecystic fluid. Sonographic Salazar sign negative. PANCREAS: Visualized proximal portion unremarkable. RIGHT KIDNEY: 11.7 cm in length with a cortical thickness of 1.4 cm. No hydronephrosis or gross renal mass demonstrated. US/Abdomen Limited IMPRESSION: No sonographic evidence of cholelithiasis. Electronically Signed: Romelia Bailey MD at 16:00 EST ,
== END | disposition home or self-care (01) ==
LOC: US 08:47
PROVIDERS: PCP Registered Nurse; Referring Provider Nurse Practitioner Acute Care; Visit Provider Nurse Practitioner Acute Care
DX: R10.13 Epigastric pain (principal); R11.0 Nausea
CPT/HCPCS: 76705

== ENCOUNTER 2024-07-03 09:58 | Day surgery (SDC) | payer BC, SELFPAY ==
--- NOTE | 2024-06-27 11:18 | PAT.ANE_ITS ---
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 When Was Last Pacemaker Check QUESTION #4 FULL TEXT: You/Your Family Experience fever (hyperthermia) with Anesthesia Last Oral Intake Last Oral intake: Last Oral Intake NPO since Meds taken in AM with sips of water? Meds patient instructed to take am of surgery PONV PONV - lead laying and gluing machine operator: PONV - lead laying and gluing machine operator Female Yes 06/26/24 15:08 HX of Motion Sickness No 06/26/24 15:08 HX of N/V After Surgery No 06/26/24 15:08 Non-Smoker Yes 06/26/24 15:08 Duration of Surgery greater Yes 06/26/24 15:08 than 60 minutes Number of Risk Factors 3 06/26/24 15:08 PONV Score Moderate Risk 06/26/24 15:08 Height & Weight Height & Weight: Anesthesia: Height & Weight Height 5 ft 8 in 06/26/24 09:13 Respiratory Assessment Respiratory Assessment - lead laying and gluing machine operator: Respiratory Tract Infection Hx - lead laying and gluing machine operator Hx Respiratory Tract Infection No 06/26/24 15:08 STOP Sleep Apnea STOP Sleep Apnea - lead laying and gluing machine operator: STOP Sleep Apnea - lead laying and gluing machine operator Hx Hypertension No 06/26/24 15:08 Hx Sleep Apnea No 06/26/24 15:08 CPAP BIPAP Do you snore loudly (louder No 06/26/24 15:08 than talking or can be heard Do you often feel tired/ No 06/26/24 15:08 fatigued/ sleepy during daytime? Has anyone observed you stop No 06/26/24 15:08 breathing during sleep? STOP Results Negative 06/26/24 15:08 QUESTION #5 FULL TEXT : Do you snore loudly (louder than talking or can be heard through closed doors)? Tobacco Use History Tobacco Use History - lead laying and gluing machine operator: Tobacco Use History - lead laying and gluing machine operator Tobacco Use Smoking Status Never smoker 06/26/24 15:08 Hx Tobacco Use No 06/26/24 15:08 Years Smoking Packs Smoked per Day Smoking Cessation Date was within the last 15 years Hx Smoking Cessation Date Hx Smoking Cessation Counseling Hematologic Medial History Hematologic Hx - lead laying and gluing machine operator: Hematologic Medical Hx - rn documentation Hx of Blood Transfusion No 06/26/24 15:08 Hx of Transfusion in last 3 No 06/26/24 15:08 Months Date of Last Transfusion (if within last 3 months) Ever experience any problems No 06/26/24 15:08 with transfusion(s)? Specify any problems Hx of Preganancy in last 3 No 06/26/24 15:08 Months Nurse Filling Out Transfusion DSCHRIBER 06/26/24 15:08 & Questions: Date: 06/26/24 06/26/24 15:08 Time: 15:09 06/26/24 15:08 Patient unable to answer at this time (ie. confused, unrespo /Reproduction History /Reproductive History - lead laying and gluing machine operator: /Reproductive Hx- lead laying and gluing machine operator Hx Now No 06/26/24 15:08 Gestational Age (in weeks): EDC: Hx Hx Para Hx Section SAB No 06/26/24 15:08 [facility] Medical History (Updated 06/26/24 @ 15:14 by Vera Potts) Alcohol use Easy bruising Migraine headache Gastritis Non-smoker History of echocardiogram Heart murmur Depression Anxiety Family history of breast cancer Family history of colon cancer in father Home Medications ?Medication ?Instructions ?Recorded ?Last Taken ?Type hydrocodone 7.5 mg-acetaminophen 1 tab PO BID PRN pain 04/29/20 Unknown History 325 mg tablet citalopram 40 mg tablet 40 mg PO DAILY 06/26/24 Unknown History fluticasone propionate 50 1 spray intranasal DAILY PRN nasal 06/26/24 Unknown History mcg/actuation nasal congestion spray,suspension lactobacillus combo no.11 15 1 cap PO QDAY 06/26/24 Unknown History billion cell sprinkle capsule (Probiotic) multivitamin 1 tab PO QDAY 06/26/24 Unknown History pantoprazole 40 mg tablet,delayed 40 mg PO DAILY 06/26/24 Unknown History release Allergy/AdvReac Type Severity Reaction Status Date / Time bupropion (From Wellbutrin) Allergy Mild GI upset Verified 06/26/24 15:06 sertraline (From Zoloft) Allergy Mild GI upset Verified 06/26/24 15:06 Family History Mother Breast cancer Father Colon cancer Surgical History (Updated 06/26/24 @ 15:14 by Vera Potts) Hx of vein stripping Hx of wisdom tooth extraction Social History Smoking Status: Never smoker second hand exposure: No alcohol intake: current alcohol intake frequency: a few times a week Alcohol type: wine substance use type: does not use caffeine: Yes what type of physical activity do you participate in: walking frequency: 5-6 times per week Audit: Pertinent Findings Pertinent Findings Echo (EF%) pertinent findings: 04/13/2022 EF 60 to 65% right atrial pressure 3 Recommendation Anesthesia Recommendation Anesthesia recommendation: OPTIMIZED for anesthesia
[2024-07-03] VITALS (7 sets, daily range): BP systolic 104–129; BP diastolic 74–96; PULSE 60–71; RESP 16–18; TEMP 36.2–36.3; O2SAT 97–100; BMI 25.9
[2024-07-03 10:34] LABS: Hematocrit 38.9 % (37-47); Hemoglobin 12.9 g/dL (12.0-15.0); Internal QC Validated? YES +Cl - CLEAR BKGD; Mean Corp Hgb Conc 33.2 g/dL (32-36); Mean Corpuscular Hgb 30.5 pg (27.0-32.0); Mean Platelet Vol. 8.9 fl (6.2-12.0); Platelet Count 235 K/mm3 (150-450); Pregnancy, Urine Negative Negative; RBC Distribution Width CV 12.1 % (11.6-14.6); RBC Distribution Width SD 40.3 fl (35.1-43.9); Red Blood Count 4.23 M/mm3 (4.2-5.4)
--- NOTE | 2024-07-03 10:44 | PCM.PRE.AN2 ---
ASA Classification* ASA Classification ASA Classification: 2 Assessment & Plan Anesthesia* Anesthesia Assessment Anesthesia Assessment: Discussed sedation and/or anesthesia options, risks, benefits, and alternatives with patient/parents/legal guardian/POA. Questions invited. The patient/parents/legal guardian/POA seems to understand and agrees to proceed with anesthesia plan. Reviewed the physical assessment, medical history, allergy history and patient home medications list prior to surgery/procedure/anesthetic and documented any changes. Performed airway and anesthesia risk assessments. Anesthesia Type Anesthesia Type: MAC History Source History Obtained from:: Patient and Chart Anesthesia Focused Assessment* Temperature: 97.2 F Pulse Rate: 69 Blood Pressure: 116/74 Respiratory Rate: 18 Pulse Ox: 100 Oxygen Delivery Method: Room Air Airway Assessment Mouth opens: >3 cm Mallampati Score: II Teeth Condition: Intact Neck Range of motion (ROM): Full ROM Focused Labs Anesthesia Preop lab: CBC WBC 5.0 K/mm3 (4.4-11.0) 07/03/24 10:26 RBC 4.23 M/mm3 (4.2-5.4) 07/03/24 10:26 Hgb 12.9 g/dL (12.0-15.0) 07/03/24 10:26 Hct 38.9 % (37-47) 07/03/24 10:26 Plt Count 235 K/mm3 (150-450) 07/03/24 10:26 CHEMISTRY Potassium 3.9 mmol/L (3.5-5.1) 07/03/24 10:26 Sodium 138 mmol/L (136-145) 07/03/24 10:26 BUN 11 mg/dL (7-18) 07/03/24 10:26 Creatinine 0.67 mg/dL (0.55-1.02) 07/03/24 10:26 Glucose 100 mg/dL (74-106) 07/03/24 10:26 TSH 1.21 uIU/mL (0.358-3.74) 08/30/23 08:07 COAG PT 12.8 SECONDS (11.7-14.9) 07/21/18 16:59 Urine Test Negative Negative 07/03/24 10:26 Pre-Assessment Diagnosis/Proposed Procedure Planned Operative Procedure(s): LLE PHLEBECTOMY Anesthesia History Anesthesia History - brisket puller: Anesthesia History - brisket puller Hx Hospitalization No 06/26/24 15:08 Any Problems With Anesthesia No 06/26/24 15:08 Cholinesterase deficiency No 06/26/24 15:08 You/Your Family Experience No 06/26/24 15:08 fever (hyperthermia) with Relationship Recent Exposure to Contagious No 07/03/24 10:30 Disease Does patient have nerve No 06/26/24 15:08 stimulator Patient instructed to have device shut off --Does patient have Pacemaker No 07/03/24 10:30 or ICD? When Was Last Pacemaker Check QUESTION #4 FULL TEXT: You/Your Family Experience fever (hyperthermia) with Anesthesia Last Oral Intake Last Oral intake: Last Oral Intake NPO since 06:00 07/03/24 10:30 Meds taken in AM with sips of No 07/03/24 10:30 water? Meds patient instructed to take am of surgery Any additional information?: Yes NPO since: 06:00 (Patient had water at 6 AM.) Meds taken in AM with sips of water?: Yes PONV PONV - brisket puller: PONV - brisket puller Female Yes 06/26/24 15:08 HX of Motion Sickness No 06/26/24 15:08 HX of N/V After Surgery No 06/26/24 15:08 Non-Smoker Yes 06/26/24 15:08 Duration of Surgery greater Yes 06/26/24 15:08 than 60 minutes Number of Risk Factors 3 06/26/24 15:08 PONV Score Moderate Risk 06/26/24 15:08 Height & Weight Height & Weight: Anesthesia: Height & Weight Height 5 ft 8 in 07/03/24 10:30 Weight: 77.6 kg 07/03/24 10:30 Body Mass Index (BMI) 25.9 07/03/24 10:30 Respiratory Assessment Respiratory Assessment - brisket puller: Respiratory Tract Infection Hx - brisket puller Hx Respiratory Tract Infection No 06/26/24 15:08 STOP Sleep Apnea STOP Sleep Apnea - brisket puller: STOP Sleep Apnea - brisket puller Hx Hypertension No 06/26/24 15:08 Hx Sleep Apnea No 06/26/24 15:08 CPAP BIPAP Do you snore loudly (louder No 06/26/24 15:08 than talking or can be heard Do you often feel tired/ No 06/26/24 15:08 fatigued/ sleepy during daytime? Has anyone observed you stop No 06/26/24 15:08 breathing during sleep? STOP Results Negative 06/26/24 15:08 QUESTION #5 FULL TEXT : Do you snore loudly (louder than talking or can be heard through closed doors)? 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 Specify any problems Hx of Preganancy in last 3 No 06/26/24 15:08 Months Nurse Filling Out Transfusion DSCHRIBER 06/26/24 15:08 & Questions: Date: 06/26/24 06/26/24 15:08 Time: 15:09 06/26/24 15:08 Patient unable to answer at this time (ie. confused, unrespo /Reproduction History /Reproductive History - brisket puller: /Reproductive Hx- brisket puller Hx Now No 06/26/24 15:08 Gestational Age (in weeks): EDC: Hx Hx Para Hx Section SAB No 06/26/24 15:08 PFSH Medical History Alcohol use Easy bruising Migraine headache Gastritis Non-smoker History of echocardiogram Heart murmur Depression Anxiety Family history of breast cancer Family history of colon cancer in father Home Medications ?Medication ?Instructions ?Recorded ?Last Taken ?Type hydrocodone 7.5 mg-acetaminophen 1 tab PO BID PRN pain 04/29/20 Unknown History 325 mg tablet citalopram 40 mg tablet 40 mg PO DAILY 06/26/24 Unknown History fluticasone propionate 50 1 spray intranasal DAILY PRN nasal 06/26/24 Unknown History mcg/actuation nasal congestion spray,suspension lactobacillus combo no.11 15 1 cap PO QDAY 06/26/24 Unknown History billion cell sprinkle capsule (Probiotic) multivitamin 1 tab PO QDAY 06/26/24 Unknown History pantoprazole 40 mg tablet,delayed 40 mg PO DAILY 06/26/24 07/03/24 History release Allergy/AdvReac Type Severity Reaction Status Date / Time bupropion (From Wellbutrin) Allergy Mild GI upset Verified 07/03/24 10:17 sertraline (From Zoloft) Allergy Mild GI upset Verified 07/03/24 10:17 Family History Mother Breast cancer Father Colon cancer Surgical History Hx of vein stripping Hx of wisdom tooth extraction Social History Smoking Status: Never smoker second hand exposure: No alcohol intake: current alcohol intake frequency: a few times a week Alcohol type: wine substance use type: does not use caffeine: Yes what type of physical activity do you participate in: walking frequency: 5-6 times per week Review of Systems (Anesthesia) ROS Narrative System reviewed and no additional complaints, except as documented.
[2024-07-03 10:46] LABS: Anion Gap 4 (5-15); BUN 11 mg/dL (7-18); BUN/Creat Ratio 16.4 RATIO (10-20); Calcium,Total 9.1 mg/dL (8.5-10.1); Chloride 105 mmol/L (98-107); Creatinine, Serum 0.67 mg/dL (0.55-1.02); EST Glomerular Filtration Rate 102 mL/min (>60); Est Glom Filt Rate - Afr Amer 123 mL/min (>60); Estimated Creatinine Clearance 117.36 ml/min; Glucose 100 mg/dL (74-106); Potassium 3.9 mmol/L (3.5-5.1); Sodium Level 138 mmol/L (136-145)
--- NOTE | 2024-07-03 12:28 | HP.PCM_ITS ---
HPI - General HPI Narrative SEBASITAN PIZARRO, is a 44 F who presents with painful left lower extremity varicose veins refractory to compression therapy. They originate from the poxviral calf GSV and course to the popliteal fossa. The below the knee GSV has reflux. Her insurance company denied chemical ablation of the below knee GSV. Plan is for ligation/phlebectomy of varicosities. [facility]LY [facility] Medical History Alcohol use Easy bruising Migraine headache Gastritis Non-smoker History of echocardiogram Heart murmur Depression Anxiety Family history of breast cancer Family history of colon cancer in father Home Medications ?Medication ?Instructions ?Recorded ?Last Taken ?Type hydrocodone 7.5 mg-acetaminophen 1 tab PO BID PRN pain 04/29/20 Unknown History 325 mg tablet citalopram 40 mg tablet 40 mg PO DAILY 06/26/24 Unknown History fluticasone propionate 50 1 spray intranasal DAILY PRN nasal 06/26/24 Unknown History mcg/actuation nasal congestion spray,suspension lactobacillus combo no.11 15 1 cap PO QDAY 06/26/24 Unknown History billion cell sprinkle capsule (Probiotic) multivitamin 1 tab PO QDAY 06/26/24 Unknown History pantoprazole 40 mg tablet,delayed 40 mg PO DAILY 06/26/24 07/03/24 History release Allergy/AdvReac Type Severity Reaction Status Date / Time bupropion (From Wellbutrin) Allergy Mild GI upset Verified 07/03/24 10:17 sertraline (From Zoloft) Allergy Mild GI upset Verified 07/03/24 10:17 Family History Mother Breast cancer Father Colon cancer Surgical History Hx of vein stripping Hx of wisdom tooth extraction Social History Smoking Status: Never smoker second hand exposure: No alcohol intake: current alcohol intake frequency: a few times a week Alcohol type: wine substance use type: does not use caffeine: Yes what type of physical activity do you participate in: walking frequency: 5-6 times per week ROS Constitutional Constitutional: Denies chills, fever(s), frequent falls, lethargy or weakness Eyes Eyes: Denies blind spots, change in vision or loss of vision ENT HEENT: Denies bleeding gums, hoarseness or sore throat Cardiovascular Cardiovascular: Denies abdominal pain, bluish discoloration of hand/feet, chest pain with activity, claudication, cold extremities, cyanosis, dyspnea on exertion, erythema on extremities, irregular heart rhythm, leg edema, leg ulcers, numbness in extremities or weakness in extremities Respiratory/Chest Respiratory/Chest: Denies cough, excessive phlegm production, shortness of breath at rest, shortness of breath with exertion or wheezing Gastrointestinal Gastrointestinal: Denies anorexia, change in stool character, constipation, diarrhea, melena or rectal bleeding Genitourinary Genitourinary: Denies dysuria or hematuria Musculoskeletal Musculoskeletal: Denies abnormal gait Integumentary Integumentary: Reports other Details: ; Denies erythema, non-healing lesions or wounds Neurologic Neurologic: Denies abnormal speech, focal weakness, headache(s), loss of vision, numbness, paresthesias or sensory deficit Hematologic/Lymphatic Hematologic/Lymphatic: Denies easy bleeding, easy bruising or lymphadenopathy Vital Signs Vital Signs Vital Signs: 07/03/24 10:30 07/03/24 10:30 07/03/24 10:51 Temperature 97.2 F L 97.2 F L Temperature Source Temporal Pulse Rate 69 69 Respiratory Rate 18 18 Respiratory Pattern Normal Blood Pressure 116/74 116/74 Blood Pressure Mean 88 Blood Pressure Source Monitor Blood Pressure Position Semi-Fowlers Blood Pressure Location Right Arm Pulse Ox 100 100 Oxygen Delivery Method Room Air Room Air Weight Weight: 171 lb 1.259 oz Body Mass Index (BMI) 25.9 Physical Exam Const alert, oriented x3, no apparent distress and healthy appearing General Appearance: cooperative; Negative for combative or lethargic Orientation / Consciousness: awake Exam Limitations: no limitations HEENT Head and Scalp: normocephalic and atraumatic Eyes EOMs intact bilaterally General Eye: normal appearance of both eyes Neck full ROM and no lymphadenopathy General: trachea midline Resp normal respiratory effort and no use of accessory muscles Effort and Inspection: Negative for labored, stridor or audible wheezes Cardio regular rate and regular rhythm Back/Spine Cervical Spine: cervical ROM normal Extremity full ROM, normal capillary refill and no clubbing, cyanosis or edema Skin no rashes or lesions noted and no wounds Neuro oriented x3, CN's II-XII intact bilaterally, no focal motor deficits and no sensory deficits noted Psych thought process normal, cooperative, affect normal, speech normal and activity/motor behavior normal Results Lab / Micro Data 07/03/24 10:26 07/03/24 10:26 Labs: Laboratory Results - last 24 hr 07/03/24 10:26: WBC 5.0, RBC 4.23, Hgb 12.9, Hct 38.9, MCV 92.0, MCH 30.5, MCHC 33.2, RDW Std Deviation 40.3, RDW Coeff of Andrew 12.1, Plt Count 235, MPV 8.9, Sodium 138, Potassium 3.9, Chloride 105, Carbon Dioxide 30.0, Anion Gap 4 L, BUN 11, Creatinine 0.67, Estim Creat Clear Calc 117.36, Est GFR (MDRD) Af Amer 123, Est GFR (MDRD) Non-Af 102, BUN/Creatinine Ratio 16.4, Glucose 100, Calcium 9.1, Urine Test Negative Assessment & Plan Assessment/Plan (1) Varicose veins of left lower extremity with pain: PLAN: -phlebectomy/ligation hopefully will resolve symptoms
[2024-07-03] MEDS: Cefazolin 2 GM in 0.9% Normal Saline (100mL Bag) 100 ML IV (13:00)
[2024-07-03] MEDS: Bupivacaine Mpf 0.5% 30 ML VIAL (13:05)
--- NOTE | 2024-07-03 13:29 | DCINST_ITS ---
Discharge Instructions Diet Discharge Diet: No restrictions Activity May shower in (days): 2 Lifting Restrictions: do not lift > 20 lbs for 7 days Additional Activity Instructions:: do not submerge incision for 14 days Dressing / Incision Call your doctor if your incision/area has: Sudden Increased Bleeding, Increased Pain/ Swelling, Increased Redness and Foul Smelling Discharge Call your doctor if you observe: Fever of 101 or Higher Remove Dressing in: 2 days Cleanse incision/area with: Soap & Water Follow Up Care Test Results: Test results from this visit will be discussed in further detail at your follow- up appointment, if applicable. Discharge Plan Admission Attending Provider: Enzo Gutierres Primary Care Provider: Vandana Valerio NP Instructions Print Language: Divehi Discharge Orders/Prescriptions Prescriptions: New oxycodone 5 mg tablet 5 mg PO Q8H PRN (Reason: pain) 1 Days Qty: 3 0RF Continued hydrocodone-acetaminophen 7.5-325 mg tablet 1 tab PO BID PRN (Reason: pain) Patient Comments: take 1 tablet by mouth twice a day if needed citalopram 40 mg tablet 40 mg PO DAILY Patient Comments: take 1 tablet by mouth once daily fluticasone propionate 50 mcg/actuation spray,suspension 1 spray INTRANASAL DAILY PRN (Reason: nasal congestion) Rx Instructions: administer into each nostril multivitamin Tablet 1 tab PO QDAY Probiotic 15 billion cell capsule, sprinkle 1 cap PO QDAY Rx Instructions: do not crush/chew/cut; swallow whole OR may open and sprinkle in cold drink/food pantoprazole 40 mg tablet,delayed release (DR/EC) 40 mg PO DAILY Rx Instructions: 40 mg orally one a day 30 minutes prior to first meal; Referrals / Follow Up: Vandana Valerio NP, BUSINESS PROCESS REPRESENTATIVE-C [Primary Care Provider] - Disposition Disposition (needs filled in before D/C Order can be placed): Home, Self Care
--- NOTE | 2024-07-03 13:44 | PCM.POST.ANE ---
Anesthesia: Postop Eval I Current Vital Signs Temperature: 97.3 F Pulse Rate: 62 Blood Pressure: 104/82 Respiratory Rate: 18 Pulse Ox: 99 Assessment Airway patent: Yes Spontaneous unlabored respirations: Yes nausea: No Vomiting: No Anesthesia Complication: No Fluid Hydration Crystalloid volume administer (ml): 0 Total IV fluid infused: 0 Progress Note Anesthesia document: Postop Eval 1 completed: Yes
--- NOTE | 2024-07-03 14:57 | OP.PCM_ITS ---
Operative Report (Standard) Operative Information Date of Procedure: 07/03/24 Pre-Operative Diagnosis: Left lower extremity varicose veins with pain Post-Operative Diagnosis: Same Surgery/Procedure Performed: Stab phlebectomy, less than 25 incisions, left lower extremity slitter cut off operator: Yes Economic Development Specialist: Jimmy Leal Tasks completed by cutting table operator first: Opening, Closing, Opening & closing, Dissecting tissue, Removing tissue, Altering tissue, Hemostasis: Tie and Retracting Type of Anesthesia: Local and MAC RN Documented Start/Stop Times: Operation Date: 07/03/24 11:30 Case Time Into Pre-Op 07/03/24 10:00 Out of Pre-Op 07/03/24 12:41 Anesthesia Start 07/03/24 12:44 Into Room 07/03/24 12:44 Procedure Start 07/03/24 13:10 Procedure End 07/03/24 13:37 Anesthesia End 07/03/24 13:42 Out of Room 07/03/24 13:42 Into Recovery 07/03/24 13:45 Into Phase II Recovery 07/03/24 13:57 Out of Recovery 07/03/24 13:57 Out of Phase II 07/03/24 14:36 Procedure Start Time: 13:10 Procedure Stop Time: 13:40 Select all DRAINS/GRAFTS/IMPLANTS that apply: None Estimated Blood Loss: 4 Specimen collected: No Description of surgery: HPI: Patient is a 44-year-old female with left lower extremity recurrent painful varicose veins primarily in the popliteal fossa. These were found to be originating from the great saphenous vein in the proximal calf just below its reconstitution via an incompetent accessory saphenous vein from the saphenofemoral junction. She had prior thigh great saphenous vein treatment either ablation or stripping. She also has nonsymptomatic varicose veins of the anterior lower leg that also come from the calf great saphenous vein. Given the anatomic relationship of her vessels with incompetent valves and her symptomatic varicosities chemical ablation was felt to be appropriate however her insurance company denied this. She presents now for stab phlebectomy of the vessels that are symptomatic. Description of procedure: Upon obtaining form consent and verification correct patient procedure site patient taken to the operating where she was positioned prepped and draped in usual sterile fashion. Timeouts performed and sedation ministered by anesthesia. Ultrasound was used to evaluate the varicosities and they could be traced from the popliteal fossa to their origin in the distal thigh great saphenous vein just below the accessory saphenous that entered from the saphenofemoral junction. There also was a branch communicating between the varicosity toward the popliteal fossa and the great saphenous vein more distal in the calf that also potentially was feeding into these symptomatic vessels. Skin overlying each of these locations was anesthetized with 1% lidocaine and transverse incision made with 11 blade. Blunt dissection was utilized to expose the vessels and they were grasped with hemostats. They were then ligated proximal and distal and divided excising the portion between. Seeing no other vessels that appeared to be contributing to her symptoms the incisions were inspected hemostasis and closed with 4 Monocryl and Dermabond. Dry sterile dressing and Porfirio wrap were then applied the patient was taken to the recovery room with anticipated discharge to home. Surgical Findings: See above Complications Complications: No
--- NOTE | 2024-07-03 15:22 | POSTOPAN2_ITS ---
Anesthesia Postop Eval I Sum Postop Eval Completion status Anesthesia document: Postop Eval 1 completed: Yes Anesthesia Postop Eval I Summary Anesthesia Postop Eval I Summary: Anesthesia Postop Eval I: Assessment Summary Airway patent Yes 07/03/24 13:44 WHAT JOB TITLES MEAN.CSIR Spontaneous unlabored Yes 07/03/24 13:44 WHAT JOB TITLES MEAN.CSIR respirations Mental status nausea No 07/03/24 13:44 WHAT JOB TITLES MEAN.CSIR Vomiting No 07/03/24 13:44 WHAT JOB TITLES MEAN.CSIR Anesthesia Postop Eval I: Fluid Summary Crystalloid volume administer 0 07/03/24 13:44 WHAT JOB TITLES MEAN.CSIR (ml) Colloids volume administered ( ml) Blood Product volume administered (ml) Total IV fluid infused 0 07/03/24 13:44 WHAT JOB TITLES MEAN.CSIR Anesthesia Postop Eval I: Summary Notes Anesthesia Complication No 07/03/24 13:44 WHAT JOB TITLES MEAN.CSIR Anesthesia Complication Comment: Post-operative progress note Anesthesia: Postop Eval II Evaluation Mental status: Awake and Calm Pain Level: 0 nausea: No Vomiting: No Complications Anesthesia Complication: No
--- NOTE | 2024-07-03 15:22 | PCM.POSTANE2 ---
Anesthesia Postop Eval I Sum Postop Eval Completion status Anesthesia document: Postop Eval 1 completed: Yes Anesthesia Postop Eval I Summary Anesthesia Postop Eval I Summary: Anesthesia Postop Eval I: Assessment Summary Airway patent Yes 07/03/24 13:44 [email or web address] Spontaneous unlabored Yes 07/03/24 13:44 GAMBRELER [email or web address].[email or web address] respirations Mental status nausea No 07/03/24 13:44 GAMBRELER HELPER.[email or web address] Vomiting No 07/03/24 13:44 [email or web address] HELPER.CSIR Anesthesia Postop Eval I: Fluid Summary Crystalloid volume administer 0 07/03/24 13:44 GAMBRELER HELPER.CSIR (ml) Colloids volume administered ( ml) Blood Product volume administered (ml) Total IV fluid infused 0 07/03/24 13:44 GAMBRELER HELPER.CSIR Anesthesia Postop Eval I: Summary Notes Anesthesia Complication No 07/03/24 13:44 [email or web address] HELPER.CSIR Anesthesia Complication Comment: Post-operative progress note Anesthesia: Postop Eval II Evaluation Mental status: Awake and Calm Pain Level: 0 nausea: No Vomiting: No Complications Anesthesia Complication: No
== END 2024-07-03 14:37 | disposition home or self-care (01) ==
LOC: SDC 09:58 → AC 09:59
PROVIDERS: Anesthesiology; PCP Registered Nurse; Referring Provider Registered Nurse; Visit Provider Surgery Trauma Surgery
PROC: (CPT 37766; principal; 2024-07-03 11:15)
DX: I83.812 Varicose veins of left lower extremity with pain (principal); F32.A Depression, unspecified; F41.9 Anxiety disorder, unspecified; Z87.19 Personal history of other diseases of the digestive system; Z79.899 Other long term (current) drug therapy
CPT/HCPCS: 37766; 80048; 81025; 85027; A4216; J2405

== ENCOUNTER 2024-08-27 10:53 | Day surgery (SDC) | payer BC, SELFPAY ==
--- NOTE | 2024-08-22 12:28 | PAT.ANESEVAL ---
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 When Was Last Pacemaker Check QUESTION #4 FULL TEXT: You/Your Family Experience fever (hyperthermia) with Anesthesia Last Oral Intake Last Oral intake: Last Oral Intake NPO since Meds taken in AM with sips of water? Meds patient instructed to take am of surgery PONV PONV - fiber optic central office installer: PONV - fiber optic central office installer Female Yes 08/22/24 12:14 HX of Motion Sickness No 08/22/24 12:14 HX of N/V After Surgery No 08/22/24 12:14 Non-Smoker Yes 08/22/24 12:14 Duration of Surgery greater No 08/22/24 12:14 than 60 minutes Number of Risk Factors 2 08/22/24 12:14 PONV Score Moderate Risk 08/22/24 12:14 Height & Weight Height & Weight: Anesthesia: Height & Weight Height 5 ft 8 in 07/03/24 10:30 Respiratory Assessment Respiratory Assessment - fiber optic central office installer: Respiratory Tract Infection Hx - fiber optic central office installer Hx Respiratory Tract Infection No 08/22/24 12:14 STOP Sleep Apnea STOP Sleep Apnea - fiber optic central office installer: STOP Sleep Apnea - fiber optic central office installer Hx Hypertension No 08/22/24 12:14 Hx Sleep Apnea No 08/22/24 12:14 CPAP BIPAP Do you snore loudly (louder No 08/22/24 12:14 than talking or can be heard Do you often feel tired/ No 08/22/24 12:14 fatigued/ sleepy during daytime? Has anyone observed you stop No 08/22/24 12:14 breathing during sleep? STOP Results Negative 08/22/24 12:14 QUESTION #5 FULL TEXT : Do you snore loudly (louder than talking or can be heard through closed doors)? 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 Specify any problems Hx of Preganancy in last 3 No 08/22/24 12:14 Months Nurse Filling Out Transfusion VCHRISTIN 08/22/24 12:14 & Questions: Date: 08/22/24 08/22/24 12:14 Time: 12:14 08/22/24 12:14 Patient unable to answer at this time (ie. confused, unrespo /Reproduction History /Reproductive History - fiber optic central office installer: /Reproductive Hx- fiber optic central office installer Hx Now No 08/22/24 12:14 Gestational Age (in weeks): EDC: Hx Hx Para Hx Section SAB No 08/22/24 12:14 PFSH Medical History Alcohol use Easy bruising Migraine headache Gastritis Non-smoker History of echocardiogram Heart murmur Depression Anxiety Family history of breast cancer Family history of colon cancer in father Home Medications ?Medication ?Instructions ?Recorded ?Last Taken ?Type hydrocodone 7.5 mg-acetaminophen 1 tab PO BID PRN pain 04/29/20 Unknown History 325 mg tablet citalopram 40 mg tablet 40 mg PO DAILY 06/26/24 Unknown History fluticasone propionate 50 1 spray intranasal DAILY PRN nasal 06/26/24 Unknown History mcg/actuation nasal congestion spray,suspension lactobacillus combo no.11 15 1 cap PO QDAY 06/26/24 Unknown History billion cell sprinkle capsule (Probiotic) multivitamin 1 tab PO QDAY 06/26/24 Unknown History pantoprazole 40 mg tablet,delayed 40 mg PO DAILY 06/26/24 07/03/24 History release oxycodone 5 mg tablet 5 mg PO Q8H PRN pain 1 day #3 tabs 07/03/24 Unknown Rx Allergy/AdvReac Type Severity Reaction Status Date / Time bupropion (From Wellbutrin) Allergy Mild GI upset Verified 08/22/24 12:12 sertraline (From Zoloft) Allergy Mild GI upset Verified 08/22/24 12:12 Family History Mother Breast cancer Father Colon cancer Surgical History Hx of vein stripping Hx of wisdom tooth extraction Social History Smoking Status: Never smoker second hand exposure: No alcohol intake: current alcohol intake frequency: a few times a week Alcohol type: wine substance use type: does not use caffeine: Yes what type of physical activity do you participate in: walking frequency: 5-6 times per week Audit: Pertinent Findings Pertinent Findings Additional pertinent findings: Scanned in labs from [facility] in June 2024 showed normal TSH Recommendation Anesthesia Recommendation Anesthesia recommendation: OPTIMIZED for anesthesia
--- NOTE | 2024-08-27 11:07 | PRE.ANES_ITS ---
ASA Classification* ASA Classification ASA Classification: 2 Assessment & Plan Anesthesia* Anesthesia Assessment Anesthesia Assessment: Discussed sedation and/or anesthesia options, risks, benefits, and alternatives with patient/parents/legal guardian/POA. Questions invited. The patient/parents/legal guardian/POA seems to understand and agrees to proceed with anesthesia plan. Reviewed the physical assessment, medical history, allergy history and patient home medications list prior to surgery/procedure/anesthetic and documented any changes. Performed airway and anesthesia risk assessments. Anesthesia Type Anesthesia Type: MAC Anesthesia Focused Assessment* Airway Assessment Mouth opens: >3 cm Mallampati Score: II Focused Labs Anesthesia Preop lab: CBC WBC 5.0 K/mm3 (4.4-11.0) 07/03/24 10:07/03/24 RBC 4.23 M/mm3 (4.2-5.4) 07/03/24 10:07/03/24 Hgb 12.9 g/dL (12.0-15.0) 07/03/24 10:07/03/24 Hct 38.9 % (37-47) 07/03/24 10:07/03/24 Plt Count 235 K/mm3 (150-450) 07/03/24 10:07/03/24 CHEMISTRY Potassium 3.9 mmol/L (3.5-5.1) 07/03/24 10:07/03/24 Sodium 138 mmol/L (136-145) 07/03/24 10:07/03/24 BUN 11 mg/dL (7-18) 07/03/24 10:07/03/24 Creatinine 0.67 mg/dL (0.55-1.02) 07/03/24 10:07/03/24 Glucose 100 mg/dL (74-106) 07/03/24 10:07/03/24 TSH 1.21 uIU/mL (0.358-3.74) 08/30/23 08:07 COAG PT 12.8 SECONDS (11.7-14.9) 07/21/18 16:59 Urine Test Negative Negative 07/03/24 10:26 12/24/24 Pre-Assessment Diagnosis/Proposed Procedure Planned Operative Procedure(s): COLONOSCOPY,EGD Anesthesia History 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 When Was Last Pacemaker Check QUESTION #4 FULL TEXT: You/Your Family Experience fever (hyperthermia) with Anesthesia Last Oral Intake Last Oral intake: Last Oral Intake NPO since Meds taken in AM with sips of water? 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 Female Yes 08/22/24 12:14 HX of Motion Sickness No 08/22/24 12:14 HX of N/V After Surgery No 08/22/24 12:14 Non-Smoker Yes 08/22/24 12:14 Duration of Surgery greater No 08/22/24 12:14 than 60 minutes Number of Risk Factors 2 08/22/24 12:14 PONV Score Moderate Risk 08/22/24 12:14 Height & Weight Height & Weight: Anesthesia: Height & Weight Height 5 ft 8 in 07/03/24 10:30 Respiratory Assessment Respiratory Assessment - menhaden vessel pilot: Respiratory Tract Infection Hx - menhaden vessel pilot Hx Respiratory Tract Infection No 08/22/24 12:14 STOP Sleep Apnea STOP Sleep Apnea - menhaden vessel pilot: STOP Sleep Apnea - menhaden vessel pilot Hx Hypertension No 08/22/24 12:14 Hx Sleep Apnea No 08/22/24 12:14 CPAP BIPAP Do you snore loudly (louder No 08/22/24 12:14 than talking or can be heard Do you often feel tired/ No 08/22/24 12:14 fatigued/ sleepy during daytime? Has anyone observed you stop No 08/22/24 12:14 breathing during sleep? STOP Results Negative 08/22/24 12:14 QUESTION #5 FULL TEXT : Do you snore loudly (louder than talking or can be heard through closed doors)? 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 Specify any problems Hx of Preganancy in last 3 No 08/22/24 12:14 Months Nurse Filling Out Transfusion VCHRISTIN 08/22/24 12:14 & Questions: Date: 08/22/24 08/22/24 12:14 Time: 12:14 08/22/24 12:14 Patient unable to answer at this time (ie. confused, unrespo /Reproduction History /Reproductive History - menhaden vessel pilot: /Reproductive Hx- menhaden vessel pilot Hx Now No 08/22/24 12:14 Gestational Age (in weeks): EDC: Hx Hx Para Hx Section SAB No 08/22/24 12:14 [facility] Medical History Alcohol use Easy bruising Migraine headache Gastritis Non-smoker History of echocardiogram Heart murmur Depression Anxiety Family history of breast cancer Family history of colon cancer in father Home Medications ?Medication ?Instructions ?Recorded ?Last Taken ?Type hydrocodone 7.5 mg-acetaminophen 1 tab PO BID PRN pain 04/29/20 Unknown History 325 mg tablet citalopram 40 mg tablet 40 mg PO DAILY 06/26/24 Unkn own History fluticasone propionate 50 1 spray intranasal DAILY PRN nasal 06/26/24 Unknown History mcg/actuation nasal congestion spray,suspension lactobacillus combo no.11 15 1 cap PO QDAY 06/26/24 Un known History billion cell sprinkle capsule (Probiotic) multivitamin 1 tab PO QDAY 06/26/24 Unkno wn History pantoprazole 40 mg tablet,delayed 40 mg PO DAILY 06/2607/03/24 History release Allergy/AdvReac Type Severity Reaction Status Date / Time bupropion (From Wellbutrin) Allergy Mild GI upset Verified 08/23/24 10:45 sertraline (From Zoloft) Allergy Mild GI upset Verified 08/23/24 10:45 Family History Mother Breast cancer Father Colon cancer Surgical History Hx of vein stripping Hx of wisdom tooth extraction Social History Smoking Status: Never smoker second hand exposure: No alcohol intake: current alcohol intake frequency: a few times a week Alcohol type: wine substance use type: does not use caffeine: Yes what type of physical activity do you participate in: walking frequency: 5-6 times per week Review of Systems (Anesthesia) ROS Narrative System reviewed and no additional complaints, except as documented.
[2024-08-27 11:17] VITALS: BP 142/92; PULSE 65; RESP 16; TEMP 36.4; O2SAT 100; BMI 26.8
[2024-08-27 11:44] LABS: Internal QC Validated? YES +Cl - CLEAR BKGD; Pregnancy, Urine Negative Negative
--- NOTE | 2024-08-27 12:05 | EGD_PTH ---
PATIENT: SEBASTIAN PIZARRO LOC: EN U#:[id number] AGE/SX: 44/F ROOM: RE08/27/[address]: Dr. Sami Garcia DO : 1980 BED: DIS: 08/27/2024 SPEC #: [id number] RECD: 08/27/24 18:13 STATUS: YOLANDA VASQUEZ #: [id number] RACHEL: 08/27/24 12:[address]: Sami Garcia DEPT: SURGICAL PATHOLOGY RECD BY: Khadra Alvares ENTERED: 08/28/24 09:40 SP TYPE: EGD BIOPSY OT DR: Vandana Valerio, CELLAR PACKER-C Tissues: A - Duodenum, NOS B - Gastric mucous membrane C - Esophagus, NOS D - Cecum, NOS E - COLON BIOPSY F - Rectum, NOS Procedures: Special Stain Group I Surgery Specimen Level IV Alcian Blue/PAS (control) HEADER OPERATION: Colonoscopy with polypectomy and biopsy, EGD with biopsy PRE-OP DIAGNOSIS: Epigastric pain, nausea, rectal bleeding TISSUE SUBMITTED: A- Duodenum biopsy, B- Gastric ulcer biopsy, C- Distal esophagus biopsy,D- Cecum polyp, E- Hepatic flexure polyp, F- Rectum biopsy MICROSCOPIC DIAGNOSIS A. Duodenum, biopsy: Fragments of duodenal mucosa, no pathologic diagnosis. B. Gastric ulcer, biopsy: Mild gastritis. See microscopic description and comment. C. Distal esophagus, biopsy: Fragments of gastroesophageal mucosa with focal intestinal metaplasia (goblet cell metaplasia), consistent with Fink's esophagus. Chronic inflammation. Negative for dysplasia. See comment. D. Cecal polyp, polypectomy: Fragments of hyperplastic polyp. Fragments of fecal material. Pigment laden macrophages consistent with melanosis coli. E. Hepatic flexure polyp, polypectomy: Fragments of hyperplastic polyp. Pigment laden macrophages consistent with melanosis coli. F. Rectum, biopsy: Fragments of colonic mucosa with pigment laden macrophages consistent with melanosis coli. 08/29/2024 COMMENT B. The results of immunohistochemistry for Helicobacter pylori will be reported separately ([id number]). C. Alcian blue/PAS stain with matched control is used in the evaluation of the specimen. Immunohistochemistry ([id number]) for P53 and Ki-67 will be performed, and results will be reported separately. Increased number of eosinophils (more than 20 per high power field) are noted suggestive of eosinophilic esophagitis. MICROSCOPIC DESCRIPTION Slides are reviewed. B. The specimen shows fragments of gastric mucosa with chronic inflammatory cell infiltrates in the lamina propria consisting of lymphocytes and plasma cells, consistent with mild chronic gastritis. Changes consistent with reactive gastropathy are also noted. GROSS DESCRIPTION A. Received in fixative is one container labeled with the patient's name and designated Duodenum biopsy. The specimen consists of multiple irregular fragments of light fernandes soft tissue that in aggregate measure 1.5 x 0.3 x 0.2 cm. The specimen is totally submitted in one cassette. B. Received in fixative is one container labeled with the patient's name and designated Gastric ulcer biopsy. The specimen consists of multiple irregular fragments of light fernandes soft tissue that in aggregate measure 1.2 x 0.2 x 0.2 cm. The specimen is totally submitted in one cassette. C. Received in fixative is one container labeled with the patient's name and designated Distal esophagus biopsy. The specimen consists of two irregular fragments of light fernandes soft tissue that in aggregate measure 1.3 x 0.3 x 0.2 cm. The specimen is totally submitted in one cassette. D. Received in fixative is one container labeled with the patient's name and designated Cecum polyp. The specimen consists of multiple irregular fragments of light fernandes soft tissue that in aggregate measure 2 x 0.3 x 0.2 cm. The specimen is totally submitted in one cassette. E. Received in fixative is one container labeled with the patient's name and designated Hepatic flexure polyp. The specimen consists of multiple irregular fragments of light fernandes soft tissue that in aggregate measure 1.5 x 0.2 x 0.1 cm. The specimen is totally submitted in one cassette. F. Received in fixative is one container labeled with the patient's name and designated Rectum biopsy. The specimen consists of two irregular fragments of light fernandes soft tissue that in aggregate measure 0.8 x 0.3 x 0.2 cm. The specimen is totally submitted in one cassette. TESFAYE 08/28/2024 TC:1 [facility]:[id number] ADDENDUM ADDENDUM ADDENDUM ADDENDUM ADDENDUM ADDENDUM ADDENDUM ADDENDUM ADDENDUM ADDENDUM 09/19/2024 09:14 ADDENDUM 09/19/2024 09:14 ADDENDUM 09/19/2024 09:14 ADDENDUM 09/19/2024 09:14 ADDENDUM 09/19/2024 09:14 CASTLE BIOSCIENCES - TISSUE CYPHER REPORT- BLOCK C1 RISK CLASS: LOW RISK SCORE: 2.2 5-YEAR PROBABILITY OF PROGRESSION: 0.90% Please see complete Gen Path Report in the patient's EMR
--- NOTE | 2024-08-27 12:05 | IMM_PTH ---
PATIENT: SEBASTIAN PIZARRO LOC: EN U#:[id number] AGE/SX: 44/F ROOM: RE08/27/[address]: Dr. Sami Garcia DO : 1980 BED: DIS: 08/27/2024 SPEC #: [id number] RECD: 08/28/24 08:41 STATUS: YOLANDA REKendra #: [id number] RACHEL: 08/27/24 12:[address]: Sami Garcia DEPT: IMMUNOHISTOCHEMISTRY RECD BY: Uvaldo Rothman ENTERED: 08/28/24 08:41 SP TYPE: IMMUNO OTHR DR: Vandana Valerio, RENEWABLE ENERGY PROJECT MANAGER-C Tissues: B - Gastric mucous membrane Procedures: H Pylori (initial) P53 (initial) KI-67 (add) PHYSICIAN & INSTITUTION [place] [id number] SPECIMEN INFORMATION: Tissue Source: B- Gastric ulcer biopsy, C- Distal esophagus biopsy Clinical Info: Epigastric pain, nausea, rectal bleeding Specimen Number: [id number] B,C CPT code: [id number] METHODOLOGY: Deparaffinized sections of prefer/formalin-fixed tissue or PAP/DQ stained slides are incubated with monoclonal/polyclonal antibodies/oligonucleotide probes. Localization is made via biotin free immunoperoxidase method. Appropriate controls are performed and reacted as expected. Results on target cell population are indicated in the following table: RESULTS: ANTIBODY / CLONE RESULT Block B H Pylori (polyclonal) negative Block C P53 (DO-7) negative (null pattern) Ki-67 (30-9) positive, low These tests were developed and their performance characteristics determined by [facility]. They may not have been cleared or approved by the U.S. Food and Drug Administration. The FDA has determined that such clearance or approval is not necessary. The above immunohistochemical/dualISH markers are ordered and reviewed by the Pathologist. INTERPRETATION: B. Gastric ulcer, biopsy: Negative for Helicobacter pylori organisms. C. Distal esophagus, biopsy: Negative for dysplasia. BIA. 08/30/2024
--- NOTE | 2024-08-27 12:23 | PCM.HP.STD ---
HPI - General General Date of Admission: 08/27/24 Date of Service: 08/27/24 Chief Complaint: abdominal pain and lower GI bleeding with change in bowel habits HPI Narrative SEBASTIAN PIZARRO, is a 44 F who presents for endoscopic evaluation of abdominal pain and lower GI bleeding. 44y/o female presents for consultation with complaints of abdominal pain. His family history is significant for father with colon cancer at 49y/o. His last colonoscopy revealed hemorrhoids and a completely benign polyp May of 2020. LABS 06/23/2024 WBC 3.6(L), TSH & CMP normal Colonoscopy 05/16/2020 ([facility]) Hemorrhoids found on perianal exam. Ascending completely benign polyp. Repeat colonoscopy in 5 years for surveillance. Mother with breast CA - BRAC negative Abdominal pain x3 months - intermittent constipation - has a BM daily - 2 episode of BRBPR with BM in past month - epigastric discomfort - nausea - upper abdominal tightness - denies any weight loss - 1 cup of coffee daily - trying to do Tylenol more than Advil for RANDHAWA - She was taking 400mg QD-BID of Advil - EtOH - wine - daily - 2 glasses at night its necessary she reports a lot of stress - she is a non-smoker [facility] Medical History Alcohol use Easy bruising Migraine headache Gastritis Non-smoker History of echocardiogram Heart murmur Depression Anxiety Family history of breast cancer Family history of colon cancer in father Home Medications ?Medication ?Instructions ?Recorded ?Last Taken ?Type hydrocodone 7.5 mg-acetaminophen 1 tab PO BID PRN pain 04/29/20 08/26/24 History 325 mg tablet citalopram 40 mg tablet 40 mg PO DAILY 06/26/24 08/26/24 History fluticasone propionate 50 1 spray intranasal DAILY PRN nasal 06/26/24 08/26/24 History mcg/actuation nasal congestion spray,suspension lactobacillus combo no.11 15 1 cap PO QDAY 06/26/24 08/26/24 History billion cell sprinkle capsule (Probiotic) multivitamin 1 tab PO QDAY 06/26/24 08/26/24 History pantoprazole 40 mg tablet,delayed 40 mg PO DAILY 06/26/24 08/26/24 History release Allergy/AdvReac Type Severity Reaction Status Date / [facility] Allergy Mild GI upset Verified 08/27/24 11:16 sertraline (From Zoloft) Allergy Mild GI upset Verified 08/27/24 11:16 Family History Mother Breast cancer Father Colon cancer Surgical History Hx of vein stripping Hx of wisdom tooth extraction Social History Smoking Status: Never smoker second hand exposure: No alcohol intake: current alcohol intake frequency: a few times a week Alcohol type: wine substance use type: does not use caffeine: Yes what type of physical activity do you participate in: walking frequency: 5-6 times per week ROS Constitutional Constitutional: Denies fatigue, fever(s), poor appetite, weight gain or weight loss Gastrointestinal Gastrointestinal: Denies belching, bloating, change in bowel habits, change in stool character, chewing difficulty, coffee ground emesis, constipation, cramping, diarrhea, dyspepsia, dysphagia, early satiety, excessive flatus, fecal incontinence, heartburn, hematemesis, hematochezia, hemorrhoids, loose stools, melena, nausea, odynophagia, rectal bleeding, tenesmus, vomiting or weight changes Vital Signs Vital Signs Vital Signs: 08/27/24 11:17 08/27/24 11:17 Temperature 97.6 F L Temperature Source Temporal Pulse Rate 65 Respiratory Rate 16 Respiratory Pattern Normal Blood Pressure 142/92 H Blood Pressure Mean 108 Blood Pressure Source Monitor Blood Pressure Position Semi-Fowlers Blood Pressure Location Right Arm Pulse Ox 100 Oxygen Delivery Method Room Air Weight Weight: 176 lb 5.917 oz Body Mass Index (BMI) 26.8 Physical Exam Const alert, oriented x3, no apparent distress and healthy appearing General Appearance: cooperative GI normal to inspection, nondistended, normoactive bowel sounds, soft to palpation, non-tender and non-distended Percussion: normal to percussion Rectal Exam: deferred Results Lab / Micro Data Labs: Laboratory Results - last 24 hr 08/27/24 11:23: Urine Test Negative Assessment & Plan Assessment/Plan (1) Epigastric pain: (2) Nausea: (3) Rectal bleeding: PLAN: Plan Assessment and Plan Assessment and Plan (1) Abdominal symptoms: (2) Epigastric pain: Status: Acute (3) Nausea: Status: Acute (4) Rectal bleeding: Status: Acute Orders: Orders Abdomen Limited Today R10.13 - Epigastric pain, R11.0 - Nausea Medications: New pantoprazole 40 mg orally one a day 30 minutes prior to first meal; 90 tabs 1RF Plan 44y/o female presents for consultation with complaints of epigastric abdominal pain x3 months. She describes this as an epigastric tightness/burning with low grade intractable nausea. She denies any change with PO intake. She was initially experiencing middle back pain which has subsided. She completed a 30d trial of Omeprazole and does feel this helped her symptoms. Denies any weight loss. She was taking Advil up to 800mg daily for management of chronic headaches and drinks wine daily. I have started her pantoprazole 40mg daily. We will avoid use of Omeprazole due to the risk of potential interaction of citalopram and select BIN1W25 inhibitors. I have scheduled her for an ABD US and EGD. She also endorses a mild increase in constipation with two episodes of BRBPR with BM one month ago. She is having a BM daily with mucus in stools. Her family history is significant for father with colon cancer at 53y/o. Her last colonoscopy revealed hemorrhoids and a completely benign polyp May of 2020. She will repeat a colonoscopy at this time as well. Patient Instructions: 1. Avoid use of non-steroidal medications 2. Limit alcohol intake Plan Details Follow Up: 3 Months
[2024-08-27 13:15] VITALS: BP 106/75; BP 142/92; PULSE 69; RESP 16; TEMP 36.6; O2SAT 100
--- NOTE | 2024-08-27 13:16 | OP.EGD_ITS ---
Patient Name: Tiffany Tran Procedure Date: 08/27/2024 12:29 PM Date of : 1980 Age: 44 Procedure: Upper GI endoscopy Indications: Epigastric abdominal pain, Functional Dyspepsia Providers: Sami Garcia DO Referring MD: Osmany Byrd Medicines: Monitored Anesthesia Care Patient Profile: This is a 44 year old female. Refer to note in patient chart for documentation of history and physical. Patient has symptoms of acute abdominal cramping, acute epigastric abdominal pain, chronic epigastric abdominal pain and acute dyspepsia. Complications: No immediate complications. Procedure: Pre-Anesthesia Assessment: - Prior to the procedure, a History and Physical was performed, and patient medications and allergies were reviewed. The patient is competent. The risks and benefits of the procedure and the sedation options and risks were discussed with the patient. All questions were answered and informed consent was obtained. Patient identification and proposed procedure were verified by the physician in the pre-procedure area. Mental Status Examination: alert and oriented. Airway Examination: normal oropharyngeal airway and neck mobility. Respiratory Examination: clear to auscultation. CV Examination: normal. Prophylactic Antibiotics: The patient does not require prophylactic antibiotics. Prior Anticoagulants: The patient has taken no anticoagulant or antiplatelet agents except for NSAID medication. ASA Grade Assessment: II - A patient with mild systemic disease. After reviewing the risks and benefits, the patient was deemed in satisfactory condition to undergo the procedure. The anesthesia plan was to use monitored anesthesia care (MAC). Immediately prior to administration of medications, the patient was re-assessed for adequacy to receive sedatives. The heart rate, respiratory rate, oxygen saturations, blood pressure, adequacy of pulmonary ventilation, and response to care were monitored throughout the procedure. The physical status of the patient was re-assessed after the procedure. After obtaining informed consent, the endoscope was passed under direct vision. Throughout the procedure, the patient's blood pressure, pulse, and oxygen saturations were monitored continuously. The Colonoscope was introduced through the mouth, and advanced to the second part of duodenum. The upper GI endoscopy was accomplished without difficulty. The patient tolerated the procedure well. Scope In: 12:40:16 PM Scope Out: 12:46:36 PM Total Procedure Duration Time 0 hours 6 minutes 20 seconds Findings: The Z-line was irregular and was found 39 cm from the incisors. Biopsies were taken with a cold forceps for histology. Verification of patient identification for the specimen was done. Estimated blood loss was minimal. A small hiatal hernia was present. Three non-bleeding cratered gastric ulcers with no stigmata of bleeding were found in the gastric antrum. The largest lesion was 5 mm in largest dimension. Biopsies were taken with a cold forceps for histology. Verification of patient identification for the specimen was done. Estimated blood loss was minimal. Biopsies were taken with a cold forceps for Helicobacter pylori testing. Verification of patient identification for the specimen was done. Estimated blood loss was minimal. Patchy mild inflammation characterized by erythema was found in the duodenal bulb. Biopsies for histology were taken with a cold forceps for evaluation of celiac disease. Verification of patient identification for the specimen was done. Estimated blood loss was minimal. Impression: - Z-line irregular, 39 cm from the incisors. Biopsied. - Small hiatal hernia. - Non-bleeding gastric ulcers with no stigmata of bleeding. Biopsied. - Chronic duodenitis. Biopsied. Recommendation: - Discharge patient to home. - Resume previous diet. - Continue present medications. - Await pathology results. - Repeat upper endoscopy to check healing. Procedure Code(s): --- Professional --- 47888, Esophagogastroduodenoscopy, flexible, transoral; with biopsy, single or multiple CPT copyright 2021 [employer]. All rights reserved. The codes documented in this report are preliminary and upon fish hatchery man review may be revised to meet current compliance requirements. Sami Garcia DO 08/27/2024 1:16:09 PM This report has been signed electronically. Number of Addenda: 0 Note Initiated On: 08/27/2024 12:29 PM
--- NOTE | 2024-08-27 13:17 | OP.CCLET_ITS ---
08/27/2024 Osmany Byrd Re : Upper GI endoscopy procedure for Tiffany Tran Dear Iman This procedure was performed on Tuesday, August 27, 2024. My impressions and recommendations are as follows: Impressions : - Z-line irregular, 39 cm from the incisors. Biopsied. - Small hiatal hernia. - Non-bleeding gastric ulcers with no stigmata of bleeding. Biopsied. - Chronic duodenitis. Biopsied. Recommendations : - Discharge patient to home. - Resume previous diet. - Continue present medications. - Await pathology results. - Repeat upper endoscopy to check healing. My findings are described in the full procedure note, which is enclosed. If I can be of further assistance, please feel free to contact me at . Sincerely, Sami Garcia, 08/27/2024 1:16:09 PM This report has been signed electronically.
[2024-08-27 13:20] VITALS: BP 108/78; BP 142/92; PULSE 55; RESP 16; O2SAT 100
--- NOTE | 2024-08-27 13:21 | OP.CCLET_ITS ---
08/27/2024 Osmany Byrd Re : Colonoscopy procedure for Tiffany Tran Dear [place]man This procedure was performed on Tuesday, August 27, 2024. My impressions and recommendations are as follows: Impressions : - Melanosis in the colon. Biopsied. - Five 1 to 2 mm polyps at the hepatic flexure and in the cecum, removed with a hot snare. Resected and retrieved. Recommendations : - Repeat colonoscopy in 5 years for surveillance. - Continue present medications. My findings are described in the full procedure note, which is enclosed. If I can be of further assistance, please feel free to contact me at . Sincerely, Sami Garcia, 08/27/2024 1:20:35 PM This report has been signed electronically.
--- NOTE | 2024-08-27 13:21 | OP.COLON_ITS ---
Patient Name: Tiffany Tran Procedure Date: 08/27/2024 12:46 PM Date of : 1980 Age: 44 Procedure: Colonoscopy Indications: Generalized abdominal pain, Abdominal pain in the left lower quadrant, Abdominal pain in the right lower quadrant, Change in bowel habits, Constipation Providers: Sami Garcia DO Referring MD: Osmany Byrd Medicines: Monitored Anesthesia Care Patient Profile: This is a 44 year old female. Refer to note in patient chart for documentation of history and physical. Patient has symptoms of acute abdominal cramping, acute epigastric abdominal pain, chronic epigastric abdominal pain and acute dyspepsia. Last Colonoscopy: 5 years ago. Complications: No immediate complications. Procedure: Pre-Anesthesia Assessment: - Prior to the procedure, a History and Physical was performed, and patient medications and allergies were reviewed. The patient is competent. The risks and benefits of the procedure and the sedation options and risks were discussed with the patient. All questions were answered and informed consent was obtained. Patient identification and proposed procedure were verified by the physician in the pre-procedure area. Mental Status Examination: alert and oriented. Airway Examination: normal oropharyngeal airway and neck mobility. Respiratory Examination: clear to auscultation. CV Examination: normal. Prophylactic Antibiotics: The patient does not require prophylactic antibiotics. Prior Anticoagulants: The patient has taken no anticoagulant or antiplatelet agents except for NSAID medication. ASA Grade Assessment: II - A patient with mild systemic disease. After reviewing the risks and benefits, the patient was deemed in satisfactory condition to undergo the procedure. The anesthesia plan was to use monitored anesthesia care (MAC). Immediately prior to administration of medications, the patient was re-assessed for adequacy to receive sedatives. The heart rate, respiratory rate, oxygen saturations, blood pressure, adequacy of pulmonary ventilation, and response to care were monitored throughout the procedure. The physical status of the patient was re-assessed after the procedure. After I obtained informed consent, the scope was passed under direct vision. Throughout the procedure, the patient's blood pressure, pulse, and oxygen saturations were monitored continuously. The Colonoscope was introduced through the anus and advanced to the terminal ileum. The colonoscopy was performed without difficulty. The patient tolerated the procedure well. The quality of the bowel preparation was adequate. Scope In: 12:48:31 PM Scope Withdrawal Time 0 hours 16 minutes 13 seconds Scope Out: 1:09:09 PM Total Procedure Duration Time 0 hours 20 minutes 38 seconds Findings: The perianal and digital rectal examinations were normal. A diffuse area of severe melanosis was found in the entire colon. Biopsies were taken with a cold forceps for histology. Verification of patient identification for the specimen was done. Estimated blood loss was minimal. Five sessile polyps were found in the hepatic flexure and cecum. The polyps were 1 to 2 mm in size. These polyps were removed with a hot snare. Resection and retrieval were complete. Verification of patient identification for the specimen was done. Estimated blood loss was minimal. Impression: - Melanosis in the colon. Biopsied. - Five 1 to 2 mm polyps at the hepatic flexure and in the cecum, removed with a hot snare. Resected and retrieved. Recommendation: - Repeat colonoscopy in 5 years for surveillance. - Continue present medications. Procedure Code(s): --- Professional --- 99055, Colonoscopy, flexible; with removal of tumor(s), polyp(s), or other lesion(s) by snare technique 94994, 59, Colonoscopy, flexible; with biopsy, single or multiple CPT copyright 2021 [employer]. All rights reserved. The codes documented in this report are preliminary and upon drive man review may be revised to meet current compliance requirements. Sami Garcia DO 08/27/2024 1:20:35 PM This report has been signed electronically. Number of Addenda: 0 Note Initiated On: 08/27/2024 12:46 PM
[2024-08-27 13:24] VITALS: BP 106/75; PULSE 61; RESP 16; TEMP 36.8; O2SAT 100
--- NOTE | 2024-08-27 13:24 | PCM.POST.ANE ---
Anesthesia: Postop Eval I Current Vital Signs Temperature: 98.3 F Pulse Rate: 61 Blood Pressure: 106/75 Respiratory Rate: 16 Pulse Ox: 100 Oxygen Delivery Method: Room Air Assessment Airway patent: Yes Spontaneous unlabored respirations: Yes Mental status: Awake and Calm nausea: No Vomiting: No Anesthesia Complication: No Fluid Hydration Crystalloid volume administer (ml): 60 Total IV fluid infused: 60 Progress Note Anesthesia document: Postop Eval 1 completed: Yes
[2024-08-27 13:25] VITALS: BP 122/87; BP 142/92; PULSE 61; RESP 16; TEMP 36.5; O2SAT 100
[2024-08-27 13:34] VITALS: BP 142/92
--- NOTE | 2024-08-27 13:40 | PCM.POSTANE2 ---
Anesthesia Postop Eval I Sum Postop Eval Completion status Anesthesia document: Postop Eval 1 completed: Yes Anesthesia Postop Eval I Summary Anesthesia Postop Eval I Summary: Anesthesia Postop Eval I: Assessment Summary Airway patent Yes 08/27/24 13:24 [email or web address] Spontaneous unlabored Yes 08/27/24 13:24 [email or web address] respirations Mental status Awake,Calm 08/27/24 13:24 [email or web address] nausea No 08/27/24 13:24 [email or web address] Vomiting No 08/27/24 13:24 [email or web address] Anesthesia Postop Eval I: Fluid Summary Crystalloid volume administer 60 08/27/24 13:24 [email or web address] (ml) Colloids volume administered ( ml) Blood Product volume administered (ml) Total IV fluid infused 60 08/27/24 13:24 [email or web address] Anesthesia Postop Eval I: Summary Notes Anesthesia Complication No 08/27/24 13:24 [email or web address] Anesthesia Complication Comment: Post-operative progress note Anesthesia: Postop Eval II Evaluation Mental status: Awake Pain Level: 0 nausea: No Vomiting: No
== END 2024-08-27 13:50 | disposition home or self-care (01) ==
LOC: EN 10:56 → AC 10:57
PROVIDERS: Anesthesiology; PCP Registered Nurse; Referring Provider Registered Nurse; Visit Provider Internal Medicine Gastroenterology
PROC: 0DJD8ZZ Inspection of Lower Intestinal Tract, Via Natural or Artificial Opening Endoscopic (ICD-10-PCS; CPT 45378; principal; 2024-08-27 12:00)
DX: K63.5 Polyp of colon (principal); K29.70 Gastritis, unspecified, without bleeding; K62.5 Hemorrhage of anus and rectum; K25.9 Gastric ulcer, unspecified as acute or chronic, without hemorrhage or perforation; K22.70 Barrett's esophagus without dysplasia; K44.9 Diaphragmatic hernia without obstruction or gangrene; K29.80 Duodenitis without bleeding; K63.89 Other specified diseases of intestine; Z79.899 Other long term (current) drug therapy; Z80.0 Family history of malignant neoplasm of digestive organs
CPT/HCPCS: 43239; 45380; 45385; 81025; 88305; 88312; 88341; 88342; A4216; J2405

== ENCOUNTER → 2024-09-07 | Outpatient (CLI) | payer BC, SELFPAY ==
--- NOTE | 2024-09-07 13:11 | VDLE_ITS ---
Reason For Study Reason For Study: Pain LLE RIGHT LEFT CFV is compressible, spontaneous, phasic, competent CFV is compressible, spontaneous, phasic, competent, and demonstrates normal augmentation. and demonstrates normal augmentation. Procedure FV is compressible, spontaneous, phasic, competent This is a venous duplex using B-mode, color flow and and demonstrates normal augmentation. spectral Doppler. POP V is compressible, spontaneous, phasic, competent Exam performed in department. and demonstrates normal augmentation. A preliminary report was called and/or faxed to T/P Trunk is compressible. Juliann DORMAN. PTV is compressible. LT PerV is compressible. Lt GSV appears stripped from junction to mid thigh Lt GSV is INCOMPETENT distal thigh, knee, and calf Lt ASV prox calf is INCOMPETENT Vein of Giacomini and Lt SSV are COMPETENT. VL/Venous Duplex US, Unilateral Interpretation Summary Deep veins of the left lower extremity are patent and compressible segmentally. There is no evidence of left lower extremity deep vein thrombosis. The left great saphenous vein appears patent an d compressible segmentally. Positive for reflux in the left great saphenous vein below the knee, accessory saphenous vein in calf. Ordering Physician: Juliann Sabillon Referring Physician: Vandana Valerio Performed By: Tova Perez, [place], RVT
== END | disposition home or self-care (01) ==
PROVIDERS: PCP Registered Nurse; Referring Provider Physician Assistant; Visit Provider Physician Assistant
DX: Z48.812 Encounter for surgical aftercare following surgery on the circulatory system (principal); I83.812 Varicose veins of left lower extremity with pain; I83.892 Varicose veins of left lower extremity with other complications
CPT/HCPCS: 93971

== ENCOUNTER 2024-12-19 08:19 | Emergency (ER) | payer BC, SELFPAY ==
[2024-12-19 08:20] VITALS: BP 160/111; PULSE 73; RESP 18; TEMP 36.6; O2SAT 100; BMI 26.4
--- NOTE | 2024-12-19 09:07 | RAD_ITS ---
PROCEDURE: ELBOW MIN 3 VIEWS 12/19/2024 REASON FOR EXAM: INJURY TECHNIQUE: Three views of the left elbow were obtained. COMPARISON: None. FINDINGS: There is no evidence of fracture or dislocation. There are no elbow joint abnormalities. There is no elbow joint effusion. There is soft tissue swelling over the olecranon. RAD/Elbow min 3 Views IMPRESSION: 1. No evidence of acute bony injury. 2. Soft tissue swelling over the olecranon. Reading Location: [place] [id number]
--- NOTE | 2024-12-19 09:12 | EX.ED.UPPERE ---
HPI History of Present Illness Chief Complaint: Upper Extremity Injury Narrative Narrative: Chief complaint and HPI: Left elbow pain. 44-year-old female presents for evaluation of left elbow pain. Patient states on Tuesday she fell down a couple wooden steps. She states since then she has had increased swelling in her left elbow with pain. She has not taken anything for the pain such as Tylenol or ibuprofen. States she has a history of gastric ulcer in which she cannot take ibuprofen. Has used intermittent ice. States she is going on vacation and wants to make sure that nothing is broken. Full range of motion of the elbow. Denies any numbness or tingling. Denies any pain in the shoulder or wrist. Review of systems: See HPI Medications: As listed on the chart Allergies: As listed on the chart PFSH: Per chart Vital signs: As listed on the chart. Reviewed. Physical exam: Gen: NAD Head: Normocephalic, atraumatic Eyes: No sclera icterus, conjunctiva clear ENT: Moist mucous membranes Neck: Full range of motion CV: Regular rate Resp: Nonlabored respirations Musc: Full ROM of the left upper extremity including elbow, no deformity, mild swelling of the left elbow without erythema/warmth crepitus, No bursitis, mildly tender to palpation diffusely, compartments soft, rest of the extremity nontender, radial pulse +2, good capillary refill, sensation intact Skin: Warm, dry Neuro: Alert, oriented, grossly intact Psych: Cooperative, appropriate mood and affect [facility] Medical History Alcohol use Easy bruising Migraine headache Gastritis Non-smoker History of echocardiogram Heart murmur Depression Anxiety Family history of breast cancer Family history of colon cancer in father Home Medications ?Medication ?Instructions ?Recorded ?Last Taken ?Type hydrocodone 7.5 mg-acetaminophen 1 tab PO BID PRN pain 04/29/20 08/26/24 History 325 mg tablet citalopram 40 mg tablet 40 mg PO DAILY 06/26/24 08/26/24 History fluticasone propionate 50 1 spray intranasal DAILY PRN nasal 06/26/24 08/26/24 History mcg/actuation nasal congestion spray,suspension lactobacillus combo no.11 15 1 cap PO QDAY 06/26/24 08/26/24 History billion cell sprinkle capsule (Probiotic) multivitamin 1 tab PO QDAY 06/26/24 08/26/24 History pantoprazole 40 mg tablet,delayed 40 mg PO BID #180 tabs 11/02/24 Unknown Rx release sucralfate 100 mg/mL oral 10 ml PO QACHS 30 days #1,200 mL 11/26/24 Unknown Rx suspension (Carafate) Allergy/AdvReac Type Severity Reaction Status Date / Time bupropion (From Wellbutrin) Allergy Mild GI upset Verified 10/29/24 13:31 sertraline (From Zoloft) Allergy Mild GI upset Verified 10/29/24 13:31 Family History Mother Breast cancer Father Colon cancer Surgical History Hx of vein stripping Hx of wisdom tooth extraction Social History Smoking Status: Never smoker second hand exposure: No alcohol intake: current alcohol intake frequency: a few times a week Alcohol type: wine substance use type: does not use caffeine: Yes what type of physical activity do you participate in: walking frequency: 5-6 times per week EXAM Physical Exam Const Vital Signs: 12/19/24 08:20 Temperature 98 F Temperature Source Oral Pulse Rate 73 Respiratory Rate 18 Blood Pressure 160/111 H Blood Pressure Mean 127 Pulse Ox 100 Oxygen Delivery Method Room Air MDM MDM MDM Narrative Medical decision making narrative: 44-year-old female presents for evaluation of left elbow pain. Patient states on Tuesday she fell down a couple wooden steps. She states since then she has had increased swelling in her left elbow with pain. Has not taken anything for the pain. See physical exam findings. Differential diagnosis includes but is not limited to contusion, effusion, fracture. Not consistent with bursitis or septic arthritis. Patient given the risks and benefits to a one-time IM Toradol shot. She consented. IM Toradol ordered. X-ray of the left elbow ordered. X-ray of the left elbow was personally viewed interpreted by me, ED physician. No fracture or dislocation. Radiology in agreement. Patient soft tissue swelling is visualized. Patient's pain and swelling is likely secondary to contusion. Recommend following up with PCP. Given education on RICE therapy. Patient confirmed understand the plan. Patient stable to discharge home. On reevaluation, patient's pain has improved with the Toradol. Impression: 1. Left elbow contusion 2. Fall down steps Discharge Plan Triage Chief Complaint: Upper Extremity Injury ED Provider: Shabbir Georges Dx/Rx/DC Orders Clinical Impression: Contusion of elbow Instructions: ED Contusion, Elbow Prescriptions: No Action hydrocodone-acetaminophen 7.5-325 mg tablet 1 tab PO BID PRN (Reason: pain) Patient Comments: take 1 tablet by mouth twice a day if needed citalopram 40 mg tablet 40 mg PO DAILY Patient Comments: take 1 tablet by mouth once daily fluticasone propionate 50 mcg/actuation spray,suspension 1 spray INTRANASAL DAILY PRN (Reason: nasal congestion) Rx Instructions: administer into each nostril multivitamin Tablet 1 tab PO QDAY Probiotic 15 billion cell capsule, sprinkle 1 cap PO QDAY Rx Instructions: do not crush/chew/cut; swallow whole OR may open and sprinkle in cold drink/food pantoprazole 40 mg tablet,delayed release (DR/EC) 40 mg PO BID Qty: 180 0RF sucralfate [Carafate] 100 mg/mL suspension 10 ml PO QACHS 30 Days Qty: 1200 1RF Primary Care Provider: Vandana Valerio NP Referrals: Vandana Valerio NP, [employer] [Primary Care Provider] - 3-5 Days Activity Restrictions/Additional Instructions: Follow-up with primary care physician. Tylenol and ice. Return back to the ED if symptoms change or worsen. Print Language: Bahraini Disposition Disposition: Home, Self Care Discharge Date/Time: 12/19/24 10:34
[2024-12-19] MEDS: Ketorolac 30 MG/ML Syringe IM (09:15)
[2024-12-19 10:34] VITALS: BP 134/90; PULSE 59; RESP 14; TEMP 36.7; O2SAT 100
== END 2024-12-19 10:34 | disposition home or self-care (01) ==
PROVIDERS: Emergency Provider Surgery; PCP Registered Nurse; Visit Provider Surgery
DX: S50.02XA Contusion of left elbow, initial encounter (principal); W10.9XXA Fall (on) (from) unspecified stairs and steps, initial encounter; Z80.0 Family history of malignant neoplasm of digestive organs; Z85.3 Personal history of malignant neoplasm of breast
CPT/HCPCS: 73080; 96372; 99282

== ENCOUNTER 2025-01-02 10:31 | Day surgery (SDC) | payer BC, SELFPAY ==
[2025-01-01 08:22] VITALS: BMI 25.7
[2025-01-02 10:51] LABS: Hematocrit 40.2 % (37-47); Hemoglobin 13.3 g/dL (12.0-15.0); Mean Corp Hgb Conc 33.1 g/dL (32-36); Mean Corpuscular Hgb 30.1 pg (27.0-32.0); Mean Platelet Vol. 8.6 fl (6.2-12.0); Platelet Count 257 K/mm3 (150-450); RBC Distribution Width CV 12.7 % (11.6-14.6); RBC Distribution Width SD 41.8 fl (35.1-43.9); Red Blood Count 4.42 M/mm3 (4.2-5.4); White Blood Count 3.6 K/mm3 (4.4-11.0)
[2025-01-02 11:25] LABS: Anion Gap 11 (5-15); BUN 9 mg/dL (4-19); BUN/Creat Ratio 12.9 RATIO (10-20); Calcium,Total 9.5 mg/dL (7.6-11.0); Carbon Dioxide 25.8 mmol/L (21.0-32.0); Chloride 102 mmol/L (98-108); Creatinine, Serum 0.68 mg/dL (0.70-1.20); EST Glomerular Filtration Rate 110 (>60); Glucose 99 mg/dL (70-99); Potassium 4.5 mmol/L (3.3-5.1); Sodium Level 139 mmol/L (133-145)
--- NOTE | 2025-01-02 14:12 | PCM.HP.STD ---
HPI - General HPI Narrative SEBASTIAN PIZARRO, is a 44 F who presents with painful left lower extremity varicose veins refractory to compression. Prior vein stripping of thigh GSV and ligation of varicose vein clusters. Despite this she continues to have painful varicose veins primarily in the posterior distal thigh and proximal calf. Duplex reveals this to be communicating with the below knee GSV. Chemical ablation was denied by insurance. She presents for foam sclero of GSV and branches. [facility] Medical History Alcohol use Easy bruising Migraine headache Gastritis Non-smoker History of echocardiogram Heart murmur Depression Anxiety Family history of breast cancer Family history of colon cancer in father Home Medications ?Medication ?Instructions ?Recorded ?Last Taken ?Type hydrocodone 7.5 mg-acetaminophen 1 tab PO BID PRN pain 04/29/20 08/26/24 History 325 mg tablet citalopram 40 mg tablet 40 mg PO DAILY 06/26/24 08/26/24 History fluticasone propionate 50 1 spray intranasal DAILY PRN nasal 06/26/24 08/26/24 History mcg/actuation nasal congestion spray,suspension lactobacillus combo no.11 15 1 cap PO QDAY 06/26/24 08/26/24 History billion cell sprinkle capsule (Probiotic) multivitamin 1 tab PO QDAY 06/26/24 08/26/24 History pantoprazole 40 mg tablet,delayed 40 mg PO BID #180 tabs 11/02/24 Unknown Rx release sucralfate 100 mg/mL oral 10 ml PO QACHS 30 days #1,200 mL 11/26/24 Unknown Rx suspension (Carafate) Allergy/AdvReac Type Severity Reaction Status Date / Time bupropion (From Wellbutrin) Allergy Mild GI upset Verified 10/29/24 13:31 sertraline (From Zoloft) Allergy Mild GI upset Verified 10/29/24 13:31 Family History Mother Breast cancer Father Colon cancer Surgical History Hx of vein stripping Hx of wisdom tooth extraction Social History Smoking Status: Never smoker second hand exposure: No alcohol intake: current alcohol intake frequency: a few times a week Alcohol type: wine substance use type: does not use caffeine: Yes what type of physical activity do you participate in: walking frequency: 5-6 times per week ROS Constitutional Constitutional: Denies chills, fever(s), frequent falls, lethargy or weakness Eyes Eyes: Denies blind spots, change in vision or loss of vision ENT HEENT: Denies bleeding gums, hoarseness or sore throat Cardiovascular Cardiovascular: Denies abdominal pain, bluish discoloration of hand/feet, chest pain with activity, claudication, cold extremities, cyanosis, dyspnea on exertion, erythema on extremities, irregular heart rhythm, leg edema, leg ulcers, numbness in extremities or weakness in extremities Respiratory/Chest Respiratory/Chest: Denies cough, excessive phlegm production, shortness of breath at rest, shortness of breath with exertion or wheezing Gastrointestinal Gastrointestinal: Denies anorexia, change in stool character, constipation, diarrhea, melena or rectal bleeding Genitourinary Genitourinary: Denies dysuria or hematuria Musculoskeletal Musculoskeletal: Denies abnormal gait Integumentary Integumentary: Reports other Details: ; Denies erythema, non-healing lesions or wounds Neurologic Neurologic: Denies abnormal speech, focal weakness, headache(s), loss of vision, numbness, paresthesias or sensory deficit Hematologic/Lymphatic Hematologic/Lymphatic: Denies easy bleeding, easy bruising or lymphadenopathy Vital Signs Vital Signs Vital Signs: Weight Weight: 169 lb Body Mass Index (BMI) 25.7 Results Lab / Micro Data 01/02/25 10:34 01/02/25 10:34 Labs: Laboratory Results - last 24 hr 01/02/25 10:34: WBC 3.6 L, RBC 4.42, Hgb 13.3, Hct 40.2, MCV 91.0, MCH 30.1, MCHC 33.1, RDW Std Deviation 41.8, RDW Coeff of Andrew 12.7, Plt Count 257, MPV 8.6, Sodium 139, Potassium 4.5, Chloride 102, Carbon Dioxide 25.8, Anion Gap 11, BUN 9, Creatinine 0.68 L, Estim Creat Clear Calc 106.50, Est GFR (MDRD) Non-Af 110, BUN/Creatinine Ratio 12.9, Glucose 99, Calcium 9.5 Assessment & Plan Assessment/Plan (1) Varicose veins of left lower extremity with pain: PLAN: -foam sclero
--- NOTE | 2025-01-02 16:58 | PCM.OPRPT ---
Operative Report (Standard) Operative Information Date of Procedure: 01/02/25 Pre-Operative Diagnosis: Varicose veins of the left lower extremity with pain Post-Operative Diagnosis: Same Surgery/Procedure Performed: Foam sclerotherapy of the left below knee great saphenous vein and accessory saphenous veins via single access site pattern room attendant: No Type of Anesthesia: Local Procedure Start Time: 12:30 Procedure Stop Time: 13:00 Select all DRAINS/GRAFTS/IMPLANTS that apply: None Estimated Blood Loss: 1 Specimen collected: No Description of surgery: HPI: Patient is a 44-year-old female with painful varicose veins of the left lower extremity whose had prior stripping of the thigh great saphenous vein as well as ligation of varicose vein clusters who continues to have pain in accessory saphenous vein and varicose vein clusters despite compression therapy. She is felt to be a candidate for foam sclerotherapy to treat the great saphenous vein reflux below the knee as well as the surrounding varicosities and accessory saphenous veins. Description of procedure: Upon obtaining informed consent and verification correct patient procedure and site the patient was taken to the Dental Technician Apprentice preop area where she was positioned prepped and draped in usual sterile fashion. Timeout was performed and ultrasound used to assess the great saphenous vein and its branches. The accessory saphenous and varicose vein clusters in question were identified and marked as were multiple orthopedic specialist veins. Skin overlying the saphenous vein in the distal calf was anesthetized 1% lidocaine advised accessed under ultrasound guidance with a micropuncture needle wire. This then exchanged for a micropuncture sheath. Manual pressure was held over all of the orthopedic specialist veins and 4.5 cc of Varithena foam was injected under ultrasound visualization filling the great saphenous vein and the accessory veins and varicosities. Once the foam or each the great saphenous just inferior to the prior stripping incision manual pressure was held at the site for 3 minutes and the vessel reassessed. There was foam filling the great saphenous vein as well as the surrounding varicosities. The micropuncture sheath withdrawn manual pressure held after which a compression dressing was placed and the patient observed on bedrest prior to discharge home. Surgical Findings: See above Complications Complications: No
== END 2025-01-02 13:10 | disposition home or self-care (01) ==
PROVIDERS: PCP Registered Nurse; Referring Provider Surgery Trauma Surgery; Visit Provider Surgery Trauma Surgery
DX: I83.812 Varicose veins of left lower extremity with pain (principal)
CPT/HCPCS: 36471; 36415; 36465; 80048; 85027; C1894; A4216

== ENCOUNTER → 2025-01-25 | Outpatient (CLI) | payer BC, SELFPAY ==
--- NOTE | 2025-01-25 10:04 | VDLE_ITS ---
Reason For Study Reason For Study: Left leg pain RIGHT LEFT CFV is compressible, spontaneous, phasic, competent CFV is compressible, spontaneous, phasic, competent, and demonstrates normal augmentation. and demonstrates normal augmentation. Procedure FV is compressible, spontaneous, phasic, competent and This is a venous duplex using B-mode, color flow and demonstrates normal augmentation. spectral Doppler. POP V is compressible, spontaneous, phasic, competent Exam performed in department. and demonstrates normal augmentation. A preliminary report was called and/or faxed to T/P Trunk is compressible. Juliann DORMAN. Lt GSV appears stripped from junction to mid thigh Acute deep vein thrombosis is noted in the left PTV mid. It is NONCOMPRESSIBLE. Acute deep vein thrombosis is noted in the left Soleus V. It is NONCOMPRESSIBLE. Acute deep vein thrombosis is noted in the left Dany V. It is NONCOMPRESSIBLE. Extends from the Soleus V. ASV in calf is occluded s/p Verathena. Thrombosed winemaker noted from ASV that extends into Gastroc V. Acute deep vein thrombosis is noted in the left Gastroc V. It is dilated and NONCOMPRESSIBLE. VL/Venous Duplex US, Unilateral Interpretation Summary Acute deep vein thrombosis noted in the left gastrocnemius vein, posterior tibi al vein, soleus vein, peroneal vein. Left accessory saphenous vein occluded consistent with recent ablation. Ordering Physician: Juliann Sabillon Referring Physician: Vandana Valerio Performed By: Mariah Dietrich RVT
== END | disposition home or self-care (01) ==
LOC: CVS 10:01
PROVIDERS: PCP Registered Nurse; Referring Provider Physician Assistant; Visit Provider Physician Assistant
DX: Z48.812 Encounter for surgical aftercare following surgery on the circulatory system (principal); I83.812 Varicose veins of left lower extremity with pain
CPT/HCPCS: 93971

== ENCOUNTER → 2025-03-25 | Outpatient (CLI) | payer BC, SELFPAY ==
--- NOTE | 2025-03-25 13:04 | VDLE_ITS ---
Reason For Study Reason For Study: LLE Pain RIGHT LEFT FV is compressible, spontaneous, phasic, competent CFV is compressible, spontaneous, phasic, competent, and demonstrates normal augmentation. and demonstrates normal augmentation. Procedure FV is compressible, spontaneous, phasic, competent and This is a venous duplex using B-mode, color flow and demonstrates normal augmentation. spectral Doppler. POP V is compressible, spontaneous, phasic, competent Exam performed in department. and demonstrates normal augmentation. The exam was diagnostic. T/P Trunk is compressible. COMPARE TO STUDY 01/25/2025. Acute deep vein thrombosis is noted in the Gastrocnemius V. It is dilated and NONCOMPRESSIBLE. Lt Soleus Vein appears compressible. PTV is compressible. LT PerV is compressible. HX GSV ablation SFJ to mid thigh. GSV is compressible distal thigh to ankle ASV calf appears dilated and NONCOMPRESSIBLE S/P chemical ablation. VL/Venous Duplex US, Unilateral Interpretation Summary Acute deep vein thrombosis is noted in the left gastrocnemius vein. Resolution of thrombus in left posterior tibial vein, soleus vein, peroneal vei n. Left accessory saphenous vein occluded consistent with recent ablation. Ordering Physician: Juliann Sabillon Referring Physician: Vandana Valerio Performed By: Prabhu Doan, RVT
== END | disposition home or self-care (01) ==
LOC: CVS 12:59
PROVIDERS: PCP Registered Nurse; Referring Provider Physician Assistant; Visit Provider Physician Assistant
DX: Z48.812 Encounter for surgical aftercare following surgery on the circulatory system (principal); I83.812 Varicose veins of left lower extremity with pain
CPT/HCPCS: 93971

== ENCOUNTER → 2025-04-25 | Outpatient (CLI) | payer BC, SELFPAY ==
[2025-04-25 12:43] LABS: Hematocrit 36.5 % (37-47); Hemoglobin 12.2 g/dL (12.0-15.0); Mean Corp Hgb Conc 33.4 g/dL (32-36); Mean Corpuscular Volume 87.3 fL (81-99); Mean Platelet Vol. 8.8 fl (6.2-12.0); Platelet Count 239 K/mm3 (150-450); RBC Distribution Width CV 12.2 % (11.6-14.6); RBC Distribution Width SD 39.5 fl (35.1-43.9); Red Blood Count 4.18 M/mm3 (4.2-5.4); White Blood Count 2.1 K/mm3 (4.4-11.0)
== END | disposition home or self-care (01) ==
LOC: LAB 11:51
PROVIDERS: PCP Registered Nurse; Referring Provider Obstetrics & Gynecology Gynecology; Visit Provider Obstetrics & Gynecology Gynecology
DX: D72.819 Decreased white blood cell count, unspecified (principal)
CPT/HCPCS: 36415; 85027